=== PATIENT | female | born 1940 | race Caucasian/White ===

== ENCOUNTER 2018-09-13 10:09 | Outpatient (CLI) | payer MEDICARE, OTHER, SELFPAY ==
[2018-09-15 15:37] LABS: TB Interpretation Negative (NEGAT); TB1 Ag minus Nil 0.01 IU/mL
== END 2018-09-13 10:29 ==
PROVIDERS: PCP General Practice; Visit Provider General Practice
DX: Z11.1 Encounter for screening for respiratory tuberculosis (principal); Z02.1 Encounter for pre-employment examination
CPT/HCPCS: 36415; 86480

== ENCOUNTER 2018-10-18 00:44 | Outpatient (CLI) | payer MEDICARE, OTHER, SELFPAY ==
[2018-10-18] MEDS: Barium Sulfate 60% W/V 355 ML BTL PO (10:04)
--- NOTE | 2018-10-18 10:06 | DI.RAD_ITS ---
SYMPTOM/DIAGNOSIS: DYSPHAGIA BARIUM SWALLOW: Fluoroscopy Time: 1 minute 9 seconds The patient swallowed barium without difficulty. 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 There is a small axial hiatus hernia beneath a tight lower esophageal ring. There is no evidence of gastroesophageal reflux. SUMMARY: A tiny diverticulum is noted in the junction of the pharynx and proximal esophagus. There is a very small axial hiatus hernia beneath a tight lower esophageal ring. PA AND LATERAL CHEST: There are emphysematous changes in the lungs. There is no evidence of an infiltrate or pleural effusion. The cardiovascular structures appear intact. 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
== END 2018-10-18 01:04 ==
PROVIDERS: PCP General Practice; Visit Provider General Practice
DX: R13.10 Dysphagia, unspecified (principal); K22.5 Diverticulum of esophagus, acquired; K44.9 Diaphragmatic hernia without obstruction or gangrene; M47.812 Spondylosis without myelopathy or radiculopathy, cervical region
CPT/HCPCS: 74220; J3490

== ENCOUNTER → 2018-12-01 14:02 | Outpatient (BNVA) | payer MEDICARE, OTHER, SELFPAY | PROVIDERS: PCP General Practice; Referring Provider General Practice; Visit Provider Physical Therapy Assistant | DX: R13.10 Dysphagia, unspecified (principal); K22.2 Esophageal obstruction | CPT/HCPCS: 99213 ==

== ENCOUNTER 2018-12-11 10:42 | Day surgery (SDC) | payer MEDICARE, OTHER, SELFPAY ==
--- NOTE | 2018-12-11 07:14 | ENDO_ITS ---
Date of service: 12/11/18 Time of Service: 12:30 Endoscopy Report DATE OF PROCEDURE: 12/11/18 PRE-OP DIAGNOSIS: Dysphagia POST-OP DIAGNOSIS: other (Schatzki's ring, ? mass/polyp at GE junction, duodenitis) PROCEDURE: EGD with biopsies and balloon dilatation to 20 cm SURGEON: Chikis Reid ANESTHESIA: other (General/ ASA 2/Georgiana Pereira, SOUND CONTR[employer]ER) ESTIMATED BLOOD LOSS: 3 PATHOLOGY: other (Duodenal bx, GE junction bx, mass/polyp bx) COMPLICATIONS: None DISPOSITION: same day INDICATIONS: Mrs. Suarez is a pleasant 78 year old female who was seen in the office with complaints of dysphasia. Risks, benefits and complications have been reviewed. Complications include but are not limited to bleeding, pain, perforation, sore throat, aspiration, and adverse reaction to the medications. Questions were entertained and answered to their satisfaction and they wished to proceed. No guarantees were given or implied. PROCEDURE START TIME: 12:30 FINDINGS: There was narrowing with a Schatzki's ring at the GE junction. There was a polypoid mass just under the ring measuring <2 cm that was biopsied. There was mild inflammation of the 1st portion of the duodenum. Stomach was normal. PROCEDURE DESCRIPTION: After informed consent was obtained the patient was take to the procedure room and placed in a supine position. Monitors were applied and a time out was done. The patients name, date of , procedure type, allergies to medications and metal in their body was reviewed. A bite block was placed and the patient was sedated. Once sedated and comfortable the gastroscope was advanced through the oropharynx which was grossly normal into the esophagus. The proximal and mid- esophagus were normal. In the distal esophagus there was narrowing and a Schatzki's ring was noted. The scope just made it through. The scope was advanced into the stomach and through the pylorus into the 3rd portion of the duodenum. The 2nd and 3rd portion of the duodenum was noted to be normal. In the 1st portion a couple of areas of inflammation were noted. Biopsies were done of these areas. There were no ulcers identified. The scope was retracted back into the stomach which was normal. The scope was retroflexed. The cardia and fundus were noted to be normal. There was no hiatal hernia noted. The scop e was retracted back into the esophagus and biopsies were done of the GE junction to rule out Agee's. The Z line was regular. A polypoid mass measuring <2 cm was noted just under the Schatzki's ring. The GE junction was at 38 cm. The distal esophagus was dilated with a balloon to 20 cm. The scope was then able to easily slide through. The scope was removed and the patient was woken up and taken back to [facility] in stable condition. Follow up: 2 weeks
--- NOTE | 2018-12-11 07:15 | W.PM.DSUDISC ---
Discharge Plan Disposition Patient Disposition: HOME Condition: Good Discharge Details Reason For Visit: Dysphagia and esophageal stricture Attending Provider: Chikis Reid Primary Care Provider: Sarthak Parekh Home Meds and New Rx's Prescriptions: New omeprazole 20 mg capsule,delayed release(DR/EC) 20 mg PO DAILY Qty: 30 RF: 3 sucralfate [Carafate] 1 gram tablet 1 gm PO TID Qty: 42 RF: 0 Continued aspirin [Adult Aspirin Regimen] 81 mg tablet,delayed release (DR/EC) 81 mg PO DAILY RF: 0 pseudoephedrine HCl [Sudafed] 30 mg Tablet 30 mg PO ONCE PRNRF: 0 Discharge Instructions Instructions: Upper Endoscopy (GEN), Esophagitis (ED) Additional Instructions: Findings: Inflammation of the esophagus and small bowel Follow up: 2 weeks Please call if you develop: fevers >101.5 Nausea or Vomiting Abdominal pain that is not transient DAY SURGERY UNIT POST COLONOSCOPY INSTRUCTIONS 1. Because there will be medication in your system for the next 24 hours, you may feel a little sleepy. Your coordination will be affected. Therefore: a. Do not drive or operate dangerous equipment for 24 hours. b. Do not drink alcohol beverages for 24 hours (not even beer). c. Plan to go home and rest for the day. 2. Generally there are no restrictions on your activity after a day or so has gone by, but you may feel a bit fatigued for a few days. 3 After you arrive home you may have a light meal and return to a normal diet as you can tolerate it without feeling sick to your stomach. 4. After surgery, you may feel pain or discomfort. This should be only transient, but if it persists please contact your doctor. 5. If there are any questions regarding the findings of your procedure, please feel free to contact your doctor. 6. If you are unable to contact your doctor with a problem, contact the hospital at [phone]. 7. Continue all your regular medications unless directed otherwise. I understand the above instructions and have no questions. Signature of Patient or Responsible Adult Escort Date/Time Name of Responsible Adult Escort Signature of Nurse Date/Time Referrals: Chikis Reid MD [ [facility] STAFF PHYSICIAN] - 12/26/18 1:15 pm Activity:: Activity as Tolerated Diet:: As Tolerated Discharge Orders Discharge Orders: Discharge Order (Routine); Ordered 12/11/18 Ordered By: Chikis Reid DS: Diagnosis Discharge Diagnosis (1) H/O esophagogastroduodenoscopy:
[2018-12-11 11:24] VITALS: BP 154/73; PULSE 87; RESP 18; TEMP 36.9; O2SAT 95
[2018-12-11] MEDS: Lactated Ringers 1,000 ML 80 ML IV (11:31)
[2018-12-11] MEDS: Lidocaine 2% Pres-Free 5 ML VIAL (12:25)
--- NOTE | 2018-12-11 12:33 | ESO_PTH ---
PATIENT: Jazmine Suarez LOC: [facility] U#:[id number] AGE/SX: 78/F ROOM: RE12/11/[address]: Chikis Reid MD : [id number] BED: DIS: 12/11/2018 SPEC #: [id number] RECD: 12/11/18 17:49 STATUS: GABY RENoble #: [id number] ROSS: 12/11/18 12:[address]: Chikis Reid DEPT: Surgical Specimen RECD BY: Kimberli Oates ENTERED: 12/11/18 17:50 SP TYPE: Eso OTHR DR: Sarthak Parekh Tissues: 1 - BIOPSY BOWEL 2 - ESOPHAGUS BIOPSY Procedures: GROSS AND MICRO LEVEL 4 Comments: [id number]
[2018-12-11 13:50] VITALS: BP 131/79; PULSE 66; RESP 16; TEMP 36.5; O2SAT 97
== END 2018-12-11 14:05 | disposition home or self-care (01) ==
LOC: SUR 11:01
PROVIDERS: PCP General Practice; Visit Provider Surgery
PROC: 0DJ68ZZ Inspection of Stomach, Via Natural or Artificial Opening Endoscopic (ICD-10-PCS; CPT 43235; principal; 2018-12-11 12:15)
DX: R13.10 Dysphagia, unspecified (principal); K22.2 Esophageal obstruction; K29.80 Duodenitis without bleeding; K22.70 Barrett's esophagus without dysplasia
CPT/HCPCS: 43233; 43239; 88305

== ENCOUNTER → 2018-12-26 13:12 | Outpatient (BNVA) | payer MEDICARE, OTHER, SELFPAY | PROVIDERS: PCP General Practice; Referring Provider General Practice; Visit Provider Surgery | DX: K22.70 Barrett's esophagus without dysplasia (principal); K29.80 Duodenitis without bleeding | CPT/HCPCS: 99212; 99213 ==

== ENCOUNTER 2019-06-27 17:06 | Emergency (ER) | payer MEDICARE, OTHER, SELFPAY ==
[2019-06-27] VITALS (23 sets, daily range): BP systolic 118–153; BP diastolic 54–86; PULSE 70–115; RESP 13–22; TEMP 36.4–36.6; O2SAT 91–99
--- NOTE | 2019-06-27 17:00 | DI.CT_ITS ---
EXAM: CT HEAD CERVICAL SPINE WO CLINICAL HISTORY: found down TECHNIQUE: Noncontrast COMPARISON: No exams were available for comparison FINDINGS: CT: There is underlying moderate atrophy. There is right subdural collection of CSF attenuation levar suring 12 millimeters in thickness. There is a small amount of the left subdural collection. There is mild right to left midline shift of 4 millimeters. There is a question of some small areas of acu te hemorrhage seen near the high right frontal sulci as well as at the lateral aspect of the right te mporal lobe. No intraparenchymal hemorrhage is seen. There no mass or visible acute infarct. Other patchy areas of low density in the white matter. Mucous retention is seen in the left sphenoid sinu s. There is mild mucosal thickening of the ethmoid and left frontal sinuses. The mastoid air cells appear clear. No skull fracture is seen. 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 No fracture or abnormal subl uxation is seen. There are degenerative changes of the facet joints as well as severe degenerative d isc changes. There is no paraspinal hematoma. IMPRESSION: Chronic appearing right subdural collection causing mild eebli-uu-[id number] midline shift. A few small f oci of acute subarachnoid hemorrhage is visible along the right frontal and right temporal regions.
[2019-06-27] MEDS: Normal Saline 1,000 ML 1000 ML IV (17:10)
--- NOTE | 2019-06-27 17:14 | ED.GENADUL_ITS ---
Discharge Plan Disposition Patient Disposition: [facility] Condition: Serious Discharge Details Chief Complaint: Trauma Clinical Impression: Closed hip fracture, Elevated troponin, Acute dehydration, Subarachnoid hemorrhage, Subdural bleeding Primary Care Provider: Anabel Martinez ED Provider: Fatemeh Sen Home Meds and New Rx's Prescriptions: No Action mometasone 0.1 % cream 1 applic TP DAILY PRN (Reason: skin irritation) Qty: 50 RF: 0 clotrimazole 1 % cream 1 applic TP BID PRN (Reason: rash) Qty: 28.4 RF: 0 omeprazole 20 mg capsule,delayed release(DR/EC) 20 mg PO DAILY Qty: 90 RF: 4 aspirin [Adult Aspirin Regimen] 81 mg tablet,delayed release (DR/EC) 81 mg PO DAILY RF: 0 pseudoephedrine HCl [Sudafed] 30 mg Tablet 30 mg PO ONCE PRNRF: 0 Medical Decision Making <BRITT Clements - Last Filed: 06/27/19 22:08> Patient is a pleasant 78-year-old female presenting today, brought in via EMS, after being found down. Last known well was 2 days ago. Unclear if this was the time when she fell. Patient last remembers Tuesday morning and then awakening secondary to her dog barking when her friend came in to check on her today. She denies any headache. No nausea vomiting. She states that she has difficulty focusing her eyes secondary to blindness and reports that nystagmus is normal for her. Her only complaint at this time is bilateral hip pain. EMS reports they have had difficulty encouraging the patient to straighten out her legs for more thorough evaluation but they have noted ecchymosis on the backside of her right hip. She denies shortness of breath, chest pain, difficulty breathing, abdominal pain. On exam, patient appears quite dry. No palpable skull fracture, no evidence of head trauma. She does have notable nystagmus and tracking her eyes. Horizontal nystagmus is noted. Patient is collared. Lungs are clear, normal cardiac auscultation. Abdomen is benign. She does have pain elicited with compression of the pelvis. Was not able to tolerate compression. No pain over the bilateral greater trochanters. Patient does have mottling of her skin, is shaking and cold. She does appear acutely ill. Ecchymosis noted on posterior a spect of the right hip, the right shoulder and lateral aspect of the left hip. EKG was obtained and reviewed by Dr. Gutierrez. Please see his interpretation. Patient is mentally stable at this time, alert and oriented x3. I am concerned for possible intracranial etiology given her amnesia that is otherwise unexplained. Also concern for possible pelvic fracture given that discomfort. Rhabdomyolysis is a concern she may have been down for the past 2 days. Plan for vergara scan, aggressive hydration. Patient will remain in cervical collar. Patient is tachycardic. She is cold with a temp of 36.4, her fluid she is receiving are warm. Patient is in warm blankets. Blood pressure stable. Contacted the lab. Patient has a lactate of 4.0. I am concerned for rhabdomyolysis. Patient is on her second liter of fluids. I am concerned that with the elevated lactate patient may have urosepsis and will begin patient on Vanco and Zosyn. Contacted by the lab the troponin is 0.26. As patient is not having any symptoms, I feel that this is most likely associated with demand ischemia. ECG was obtained at the time of initial presentation, reviewed by Dr. Gutierrez with no ischemic changes noted. We will continue to monitor and repeat troponin and EKG. Pain is increasing in her bilateral hips. Will give another 50mcg of Fentanyl and zofran Contacted by radiology. They noticed subarachnoid hemorrhage questioning is traumatic. They also noticed subdural bleed but advised that this appears a late and subacute the 12 mm thickness. Does report a small midline shift no evidence of herniation. Negative C-spine. Will consult with trauma at [facility] Head of bed at 30. will give 1050 cc bolus of hypertonic saline. Unclear if the patient has been seizing as she has been amnesia for the past 2 days and we will begin the patient on Keppra. We will stop the antibiotics. Remaining labs reviewed. No leukocytosis. Hemoglobin is stable. Sodium is elevated 150. Anion gap of 14 with a BUN of 58 and creatinine of 1.3. Lactate 4.0. AST 53. CK 886. Troponin 0.26. Urine significant for blood, protein. Negative leukocyte esterase, negative nitrite. Consulted with trauma, spoke with Dr. Cruz who accepts patient in ED to ED transfer start for her subarachnoid hemorrhage, subdural bleed, hip fracture, elevated troponin. <Kulwant Gutierrez, DO - Last Filed: 06/27/19 17:54> EKG 17: 17, Rate 92, QTc slightly prolonged at 473, LA 110, QRS 92, sinus rhythm, LA shortened at 110. No significant ST elevations or depressions, no evidence of delta wave. No evidence of Njdco-Zvupnfopb-Jnnaq. No evidence of STEMI. HPI <Fatemeh Sen PA - Last Filed: 06/27/19 22:08> General Mode of arrival: EMS . Date/Time Provider Initiated Documentation: 06/27/19 17:14 . Limitations to Documentation: no limitations (patient has amnesia x 2 day, A&O x 3 at this time) . Information obtained by: patient, EMS and RN notes reviewed . HPI Narrative: Patient is a 78-year-old female who is brought in via EMS after being found down at home. EMS reports the last known well was sometime on Tuesday. Patient is currently alert and oriented.. She does endorse a period of amnesia and feels that she was confused. Tremors awakening on the floor secondary to dog barking today. Dog was barking at friend coming in to check in on her. If this friend then called EMS after finding her down. Patient was immediately endorsing bilateral hip pain to EMS. Patient is received 50 mcg of fentanyl thus far. S he denies any headache. No nausea or vomiting. Denies any shortness of breath, chest pain. No change in bowel or bladder habits. Past medical history significant for blindness, Agee's esophagus. No recent travel. No recent procedures. No recent change in medications. Related Data Home Medications Medication Instructions Recorded Confirmed aspirin 81 mg tablet,delayed 81 mg PO DAILY 12/01/18 06/27/19 release pseudoephedrine HCl [Sudafed] 30 mg PO ONCE PRN 12/08/18 06/27/19 clotrimazole 1 % topical cream 1 applic TP BID PRN #28.4 gm 05/29/19 06/27/19 mometasone 0.1 % topical cream 1 applic TP DAILY PRN #50 gm 05/29/19 06/27/19 omeprazole 20 mg capsule,delayed 20 mg PO DAILY #90 cap 05/29/19 06/27/19 release Previous Rx's Medication Instructions Recorded clotrimazole 1 % topical cream 1 applic TP BID PRN #28.4 gm 05/29/19 mometasone 0.1 % topical cream 1 applic TP DAILY PRN #50 gm 05/29/19 omeprazole 20 mg capsule,delayed 20 mg PO DAILY #90 cap 05/29/19 release Allergies Allergy/AdvReac Type Severity Reaction Status Date / Time erythromycin base AdvReac Intermediate GI upset Verified 06/27/19 17:16 Review of Systems <BRITT Clements - Last Filed: 06/27/19 22:08> Narrative: Review is limited secondary to amnesia Constitutional Constitutional: Denies headache(s) Eyes Eyes: Reports as per HPI (patient is blind at [facility]) ENT Ears, Nose, Mouth, and Throat: Denies headache(s) Cardiovascular Cardiovascular: Reports as per HPI, Denies chest pain and Denies dyspnea Respiratory Respiratory: Reports as per HPI, Denies pain on inspiration, Reports pain with cough and Denies dyspnea Gastrointestinal Gastrointestinal: Reports as per HPI and Denies abdominal pain Musculoskeletal Musculoskeletal: Reports as per HPI (right sided hip pain) and Reports abnormal gait (not ambulatory since amnesia event) Neurologic Neurologic: Reports as per HPI, Reports abnormal gait (not ambulatory since amnesia event), Reports confusion (she reports being confused when she was woken by friend), Denies headache(s) and Denies paresthesias Psychiatric Psychiatric: Reports confusion (she reports being confused when she was woken by friend) PFSH <BRITT Clements - Last Filed: 06/27/19 22:08> Medical History Agee's esophagus (Acute) Blindness (Acute) Duodenitis determined by biopsy (Acute) Dysphagia (Acute) Esophageal stricture (Acute) Surgical History H/O esophagogastroduodenoscopy (Chronic ~12/11/18) H/O tubal ligation (Chronic) History of arthroscopic knee surgery (Chronic) History of cataract surgery (Chronic) only on one eye pt not clear as to which side. Family History (Updated 05/03/19 @ 12:03 by Gómez Webster) Mother , age 63 No problems noted. Father , age 70 No problems noted. Brother , age 45 No problems noted. Other Cancer Hypertension Social History Smoking/Tobacco Use Status: Never Alcohol Intake: current Alcohol Intake frequency: a few times a week Alcohol type: beer, wine and hard liquor Drug use: Never Caregiver/Support person: No Housing: house Communication Needs: None Pets and animals: Yes Pets and animals: cat(s) and dog(s) Sexually active: No Do you think of yourself as: straight/heterosexual What is your relationship status?: never How often do you talk on the phone with friends or family?: three or more times per week How often do you get together with friends or relatives?: once per week How often do you attend synagogue or restoration services?: decline to answer Do you belong to any clubs or organized social groups?: yes Panel score (0-1 are the most socially isolated patients): 2 What type of physical activity do you participate in: walking Duration: 30-45 minutes/day Frequency: 3-4 times per week Jie/Anabaptist: Church Special jie needs: No Seatbelt use: sometimes Helmet use: No Drive intox or ride w/intox 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 Do you feel safe at home: Yes Additional Social history: lives alone Exam <BRITT Clements - Last Filed: 06/27/19 22:08> Const General: cooperative, no acute distress, well developed and ill appearing Nutritional Appearance: average body habitus and well nourished (appears dehydrated) Orientation: alert, awake and oriented x3 HENMT Head: normal to inspection, no palpable skull fracture, normocephalic, atraumatic, no Carter's sign, no contusions, no hematomas, no occipital foramen tenderness, no palpable skull fracture, no raccoon eyes, no scalp tenderness and No periorbital ecchymosis Ears: hearing grossly normal bilaterally, external ears normal and TM's normal bilaterally General nose exam: external nose normal Mouth: oral mucosae normal, lip normal, tongue normal and mucous membranes dry (patient apperas dehydrated) Throat: posterior oropharynx normal Eyes General: appearance abnormal, both eyes (eyes are conjugate she has a floating gaze and is not fixating on any objec) Alignment and Position: alignment normal (As above, patient does have horizontal nystagmus particularly with leftward) Eyelids: eyelids normal Conjunctivae: conjunctivae normal Sclera: sclerae normal EOM: EOM not intact bilaterally (Unable to assess, patient is unable to focus gaze at baseline) Neck Neck: normal visual inspection, limited ROM (Patient currently in collar), trachea midline and supple Chest Chest: normal inspection of the chest, normal palpation of entire chest wall, no crepitus and no localized rib tenderness Resp Effort & Inspection: normal respiratory effort, able to speak in complete sentences and no respiratory distress Auscultation: clear to auscultation bilaterally, no rales, no rhonchi and no wheezes Cardio Rate: regular rate Rhythm: regular rhythm Heart Sounds: S1 normal and S2 normal GI Inspection: normal to inspection, no abdominal wall ecchymosis, no edema and non-distended Palpation: soft, no hepatosplenomegaly, not firm, no guarding, no pulsatile masses, not rigid and nontender Auscultation: hypoactive bowel sounds Back/Spine/Pelvis Cervical Spine: collar present, No cervical spinal tenderness and No step off deformity Thoracic/Lumbar Spine: thoracic and lumbar spine normal to inspection, thoraco- lumbar ROM normal, No thoracic spinal tenderness and No lumbar spinal tenderness Pelvis: pain with anterior-posterior compression (pain elicited with palpation and compression) and pain with lateral compression Skin General skin exam: ecchymosis (right anterior shoulder, left lateral foot) Neuro General: alert, awake, oriented x3, gait normal, tone normal and moves all extremities Cranial Nerves: pupils not ERRL, accommodation abnormal, nystagmus present, facial strength normal, tongue midline, unable to rotate head bilaterally (did not assess with collar in place), able to elevate shoulders bilaterally and Symmetric palate elevation Cognition: normal cognition (is able to describe her previous confusion, oriented at this time) Speech: speech normal Motor: muscle tone normal throughout, strength 5/5 throughout (in BUE, strength difficult to assess in lower extremities secondary to hip ), no pronator drift and no movement abnormalities noted Sensory Exam: no sensory deficits noted (no saddle paresthesias) Extrem General: normal to inspection (BUE mottled), normal capillary refill, no pedal edema, no calf tenderness and abnormal gait Right upper extremity: abnormal to inspection (ecchymosis to right shoulder) Left upper extremity: normal to inspection Right lower extremity: normal capillary refill and no joint enlargement; abnormal to inspection (pain over left side of pelvis, unable to move both hips secondary to pain) and ROM limited Left lower extremity: normal capillary refill, no joint enlargement and foot (ecchymosis left lateral foot); abnormal to inspection (pain over left side of pelvis, unable to move both hips secondary to pain) and abnormal ROM Psych Appearance: grossly normal and well kempt Mental Status: mental status grossly normal Speech and Movement: speech and movement normal
--- NOTE | 2019-06-27 17:30 | DI.CT_ITS ---
EXAM: CT CHEST/ABD/PEL WO CLINICAL HISTORY: found down TECHNIQUE: Noncontrast COMPARISON: RF barium swallow from 10/18/2018 FINDINGS: Chest CT: Heart size is normal. No pleural or pericardial effusions are seen. There is no evidence of pneumothorax. No displaced rib fractures are identified. The thoracic spine shows degenerative changes. There is a mild compression fracture of T9 which appears stable compared with the previous chest x-ray. There is a peripheral area of consolidation in the lingula with an air bronchogram susp icious for pneumonia. No mass or adenopathy is seen. There are mild dependent changes at the lung b ases. Abdomen and pelvic CT: There is a subcapital fracture of the right femur. The right femoral shaft is displaced superolateral to the femoral head. There are a few tiny comminuted fragments at the femor al neck. Femoral head is normally positioned. No additional pelvic or spine fractures are seen. De generative changes and scoliosis are seen in the lumbar spine. A tiny cyst is seen in the left lobe of the liver. The gallbladder is somewhat distended but shows n o evidence of wall thickening or surrounding inflammation. No calcified stones are seen. The spleen is normal in size. The pancreas, kidneys and adrenals are unremarkable. The urinary bladder is amol ewhat distended but intact. Uterus and ovaries are unremarkable. There is increased stool in the re ctum. The remainder of the colon is unremarkable. Appendix appears normal. There is no small bowel dilatation. There is no free air or free fluid. The aorta is normal in diameter and shows mild mariluz cification. IMPRESSION: 1. Lingular infiltrate. 2. Subcapital fracture of the right femur with displacement.
[2019-06-27 17:34] LABS: Abs Immature Grans 0.03 k/cumm (0.0-0.09); Absolute Basophil Count 0.01 k/cumm (0.0-0.2); Absolute Eosinophil Count 0.01 k/cumm (0.0-0.7); Absolute Lymphocyte Count 1.67 k/cumm (1.2-3.4); Absolute Neutrophil Count 8.09 k/cumm (1.2-6.7); Basophils % 0.1; Eosinophils % 0.1; HCT 39.5 % (36.0-46.0); HGB 13.2 g/dL (12.0-15.5); Immature Grans % 0.3 %; Lymphocytes % 15.7; Mean Corp. HGB Concentration 33.4 g/dL (32.0-36.0); Mean Corpuscular Hemoglobin 33.5 pg (27.0-33.0); Mean Corpuscular Volume 100.3 fL (80-95); Mean Platelet Volume 9.3 fL (8.0-11.0); Monocytes % 7.5; Neutrophils % 76.3; Platelet Count 350 x1000/uL (130-400); RBC 3.94 m/cumm (4.00-5.20); RBC Distribution Width 14.4 % (11.7-14.6); White Blood Cell Count 10.61 k/cumm (4.4-10.8)
[2019-06-27 17:45] LABS: ALT 58 U/L (14-59); AST 53 U/L (15-37); Albumin 3.3 g/dL (3.4-5.0); Alkaline Phosphatase 85 U/L (46-116); Anion Gap 14.2 mmol/L (3-11); BUN 58 mg/dL (7-18); Bilirubin, Total 0.9 mg/dL (0.2-1.0); CO2 23.8 mmol/L (21.0-32.0); CREATININE 1.34 mg/dL (0.55-1.02); Calcium 9.7 mg/dL (8.5-10.1); Chloride 112 mmol/L (98-107); Creatine Kinase 886 U/L (26-192); Estimated GFR 38.35 (mL/min/1.73m2); Glucose 171 mg/dL (74-106); Magnesium 2.2 mg/dL (1.8-2.4); Potassium 3.5 mmol/L (3.5-5.1); Sodium 150 mmol/L (136-145); Total Protein 7.4 g/dL (6.4-8.2)
[2019-06-27 17:49] LABS: Troponin I 0.26 ng/Ml (<0.06)
[2019-06-27] MEDS: fentaNYL 100 MCG/2 ML VIAL 50 MCG IVP ×2 (17:50→20:00)
[2019-06-27 17:58] LABS: ETHANOL BLOOD < 3.0 mg/dL (<3)
[2019-06-27] MEDS: Ondansetron 4 MG/2 ML VIAL IVP (18:12)
[2019-06-27] MEDS: PIPERACILLIN/TAZO 3.375 GM in Normal Saline 50 ML IVPB (18:24)
[2019-06-27 18:53] LABS: Bilirubin Small (Negative); Blood Large (Negative); Clarity Sl Cloudy (Clear); Glucose 250 mg/dL (Negative); Ketones Negative (Negative); Leukocyte Esterase Negative (Negative); Nitrite Negative (Negative); Specific Gravity 1.025 (1.005-1.025); Urobilinogen 0.2 EU/dL (Up TO 0.2)
[2019-06-27 19:02] LABS: Bacteria Rare HPF (Negative); Crystals Rare Amorphous HPF (Negative); Epithelial Cells Negative HPF (Negative); Mucus Heavy (Negative); RBC 0-2 HPF (0-2); WBC 0-2 HPF (0-5)
[2019-06-27 19:03] LABS: C & S Indicated? No
[2019-06-27] MEDS: VANCOMYCIN 1,000 MG in Normal Saline 250 ML 166.6666 MG IVPB (19:08)
--- NOTE | 2019-06-27 19:10 | NUR.NOTE ---
Nursing Note: pt placed with head of the bed at 30 degree. she is talkative and is oriented to place .
--- NOTE | 2019-06-27 19:14 | DI.VRAD_ITS ---
PROCEDURE INFORMATION: Exam: CT Head Without Contrast Exam date and time: 06/27/2019 5:54 PM Age: 78 years old Clinical indication: Other: Found down TECHNIQUE: Imaging protocol: Computed tomography of the head without contrast. Radiation optimization: All CT scans at this facility use at least one of these dose optimization techniques: automated exposure control; mA and/or kV adjustment per patient size (includes targeted exams where dose is matched to clinical indication); or iterative reconstruction. COMPARISON: No relevant prior studies available. FINDINGS: Brain: Moderate generalized atrophy with mild periventricular white matter ischemic changes consistent with the patient's advanced age. There is a subdural fluid collection over the right cerebral convexity extending about 13 cm anterior to posterior by 9 cm craniocaudal over the convexity, and measures up to 12 mm in thickness. It demonstrates homogeneous Joy hypodense to isodense character with slight complexity, measuring 25 Hounsfield units on average. 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 There is a small amount of hyperdense subarachnoid hemorrhage within a high right frontal sulcus on axial series 3, image 41 measuring 72 Hounsfield units in density. An additional small component of subarachnoid hemorrhage is suspected at the lateral margin of the right temporal lobe on image 25 measuring 60 Hounsfield units. Tobias-white differentiation is well maintained. No evidence of acute or subacute intracranial ischemia/infarct. No intracranial mass lesions. Ventricles: Mild compensatory ventriculomegaly secondary to central atrophy. There is 4.5 mm right to left midline shift without evidence of associated herniation or ventricular entrapment. Bones/joints: The calvarium and visualized facial bones are intact. Sinuses: Fluid levels in the frontal sinuses and opacified ethmoid air cells with partially aerated secretions in the left sphenoid sinus, suggesting acute sinus inflammatory disease. Mastoid air cells: Visualized mastoid air cells are clear. Orbits: Orbital contents demonstrate no evidence of acute abnormality. Soft tissues: The scalp and visualized soft tissues demonstrate no acute abnormality. Vasculature: Moderate atherosclerotic calcific plaque is identified in the visualized proximal intracranial arterial segments. No asymmetric vascular hyperdensities suggestive of thrombosis are identified. Other findings: The IACs are grossly normal. The sella is grossly normal. IMPRESSION: 1. There are small foci of acute subarachnoid hemorrhage located in a high right frontal sulcus and along the lateral margin of the right temporal lobe, probably representing small foci of traumatic subarachnoid hemorrhage. 2. Mildly complex right-sided extensive subdural fluid most consistent with late subacute to chronic subdural hemorrhage. No suspected sites of active/acute subdural hemorrhage are identified currently. 3. There is 4.5 mm of associated right to left midline shift without evidence of herniation or ventricular entrapment. 4. Underlying moderate generalized atrophy with mild periventricular white matter ischemic changes. 5. Fluid levels in the paranasal sinuses suggesting an element of acute sinus inflammatory disease. 6. THIS REPORT CONTAINS FINDINGS THAT MAY BE CRITICAL TO PATIENT CARE. The findings were verbally communicated via telephone conference with IRVIN LACKEY at 7:13 PM EST on 06/27/2019. The findings were acknowledged and understood. PROCEDURE INFORMATION: Exam: CT Cervical Spine Without Contrast Exam date and time: 06/27/2019 5:54 PM Age: 78 years old Clinical indication: Other: Found down TECHNIQUE: Imaging protocol: Computed tomography images of the cervical spine without contrast. Radiation optimization: All CT scans at this facility use at least one of these dose optimization techniques: automated exposure control; mA and/or kV adjustment per patient size (includes targeted exams where dose is matched to clinical indication); or iterative reconstruction. COMPARISON: No relevant prior studies available. FINDINGS: Vertebrae: Diffuse osteopenia. Craniocervical alignment is normal. The odontoid is intact. C2-C3 congenital block vertebrae configuration noted. Reversal of cervical lordosis is probably related to chronic advanced degenerative changes in the mid and upper cervical spine although an element of muscular strain/spasm might be contributing to this appearance. 2 mm degenerative anterolisthesis at C3-C4 and 2 mm degenerative anterolisthesis at C7-T1. No blastic or lytic lesions. Discs/Spinal canal/Neural foramina: The occipital condyles are intact. Moderate degenerative sclerosis and spurring at the atlantodens interval. No jumped or perched facets. Advanced bilateral degenerative facet hypertrophic change C3-C4. Bilateral facet ankylosis C4-C5 and C5-C6. Moderate bilateral degenerative facet hypertrophic changes C6-C7 and C7-T1. Moderate degenerative disc space narrowing C3-C4. There is ankylosis across the disc spaces at C4-C5, C5-C6, and C6-C7. Moderate disc space narrowing C7-T1 and T1-T2. No compressive soft disc protrusion or extrusion is evident by CT. Mild central canal stenosis C5-C6 with AP thecal sac dimension of 9.1 mm. Mild bilateral foraminal stenosis C3-C4. Mild bilateral foraminal stenosis C6-C7. Other bones/joints: No fractures. Soft tissues: Paraspinous soft tissues are unremarkable without significant soft tissue swelling or soft tissue hematoma. Thyroid: The visualized thyroid gland is unremarkable. Lungs: Mild bilateral apical pleural/parenchymal scarring. IMPRESSION: 1. No evidence of fracture or acute traumatic subluxation. 2. Extensive cervical degenerative changes as described. 3. There is reversal of mid cervical lordosis which probably relates to the advanced degenerative changes and multilevel ankylosis. An element of muscular strain/spasm might be contributing to this configuration somewhat. 4. C2-C3 congenital block vertebrae noted. Dictated and Authenticated by: Vitaly Smith MD. Ordering:MANDY Weldon MD
--- NOTE | 2019-06-27 19:21 | DI.VRAD_ITS ---
PROCEDURE INFORMATION: Exam: CT Chest Without Contrast Exam date and time: 06/27/2019 6:00 PM Age: 78 years old Clinical indication: Other: Found down, concern for pelvic TECHNIQUE: Imaging protocol: Computed tomography of the chest without contrast. Radiation optimization: All CT scans at this facility use at least one of these dose optimization techniques: automated exposure control; mA and/or kV adjustment per patient size (includes targeted exams where dose is matched to clinical indication); or iterative reconstruction. COMPARISON: No relevant prior studies available. FINDINGS: Thyroid: The thyroid gland appears within normal limits. Lungs: The tracheobronchial tree is patent bilaterally. There is a consolidation within the left upper lobe. There is an air bronchogram. This could represent a small infiltrate. This could represent atelectasis as well. There is fibrosis and scarring within the left upper lobe. There are dependent atelectatic changes at the left lung base. Pleural space: Unremarkable. No pneumothorax. No pleural effusion. Heart: The heart and pericardium are within normal limits. Aorta: The aorta is unremarkable. Lymph nodes: No enlarged lymph nodes. Bones/joints: There are degenerative changes of the thoracic spine. There are degenerative changes of both shoulders. Soft tissues: Unremarkable. IMPRESSION: Suspect left upper lobe infiltrate. Clinical correlation is suggested. Osseous findings as above. PROCEDURE INFORMATION: Exam: CT Abdomen And Pelvis Without Contrast Exam date and time: 06/27/2019 6:00 PM Age: 78 years old Clinical indication: Other: Found down, concern for pelvic TECHNIQUE: Imaging protocol: Computed tomography of the abdomen and pelvis without contrast. Radiation optimization: All CT scans at this facility use at least one of these dose optimization techniques: automated exposure control; mA and/or kV adjustment per patient size (includes targeted exams where dose is matched to clinical indication); or iterative reconstruction. COMPARISON: No relevant prior studies available. FINDINGS: Liver: There is a small low-attenuation lesion within the left lobe of the liver measuring 9 mm. This is too small to characterize by CT criteria. Gallbladder and bile ducts: The gallbladder is somewhat distended. Pancreas: The pancreas is unremarkable. Spleen: The spleen is small. Adrenals: The adrenal glands are unremarkable. Kidneys and ureters: The kidneys are within normal limits. Stomach and bowel: There are feces within the colon which are suspicious for constipation. Appendix: The appendix is visualized and is within normal limits. Intraperitoneal space: Unremarkable. No free air. No significant fluid collection. Vasculature: Unremarkable. No abdominal aortic aneurysm. Lymph nodes: No enlarged lymph nodes. Bladder: The urinary bladder is distended with urine. Reproductive: The uterus and ovaries are within normal limits for a patient of this age. Bones/joints: There is a fracture through the neck of the right femur. The femoral shaft is displaced superiorly. The head remains within the acetabulum There is a levoscoliosis of the lumbar spine. There are degenerative changes and degenerative disc disease of the lumbar spine. Soft tissues: Unremarkable. IMPRESSION: Right femoral neck fracture as above. Osseous findings as above. Small liver lesion too small to characterize by CT criteria. Suspect constipation as above. Dictated and Authenticated by: Nestor Mcdowell MD. Ordering:MANDY Weldon MD
[2019-06-27] MEDS: levETIRAcetam 2,000 MG in Normal Saline 100 ML 400 MG IVPB (19:41)
[2019-06-27] MEDS: SODIUM CHLORIDE 3% 500 ML 100 ML IV (20:05)
== END 2019-06-27 20:15 | disposition short-term general hospital (02) ==
PROVIDERS: Emergency Provider Physician Assistant; PCP Nurse Practitioner
DX: R41.3 Other amnesia (principal); S72.011A Unspecified intracapsular fracture of right femur, initial encounter for closed fracture; W19.XXXA Unspecified fall, initial encounter; E86.0 Dehydration; R77.8 Other specified abnormalities of plasma proteins; I60.9 Nontraumatic subarachnoid hemorrhage, unspecified; I62.03 Nontraumatic chronic subdural hemorrhage; E87.2 Acidosis
CPT/HCPCS: 36415; 71250; 80053; 82550; 86850; 86900; 86901; 93005; 96361; 96365; 96367; 96375; 99285; 70450; 72125; 74176; 80320; 81003; 81015; 83605; 83735; 84484; 85025; 93010; J1953; J2405; J2543; J3010

== ENCOUNTER 2019-08-30 10:11 | Outpatient (CLI) | payer MEDICARE, OTHER, SELFPAY ==
--- NOTE | 2019-08-30 10:00 | DI.RAD_ITS ---
EXAM: XR HIP RT AP LAT ONLY CLINICAL HISTORY: F/U FRACTURE TECHNIQUE: COMPARISON: No exams were available for comparison FINDINGS: Two views were obtained and show femoral head prosthesis in place on the right. This appears well se ated in the proximal femur and the acetabulum. No other significant abnormality seen. IMPRESSION:
== END 2019-08-30 10:31 ==
PROVIDERS: PCP Nurse Practitioner; Referring Provider Nurse Practitioner; Visit Provider Student in an Organized Health Care Education/Training Program
DX: S72.001D Fracture of unspecified part of neck of right femur, subsequent encounter for closed fracture with routine healing (principal); Z96.641 Presence of right artificial hip joint; W19.XXXD Unspecified fall, subsequent encounter
CPT/HCPCS: 99213; 73502

== ENCOUNTER 2020-01-16 01:41 | Outpatient (CLI) | payer MEDICARE, OTHER, SELFPAY ==
--- NOTE | 2020-01-16 06:45 | DI.MAMMO_ITS ---
EXAM: MG MAMMO SCREENING 60 MIN DUR CLINICAL HISTORY: breast cancer screening,Z12.39 TECHNIQUE: Mammograms were interpreted according to the usual protocol including computer analysis w [employer] system, tomosynthesis and C-view imaging. COMPARISON: FINDINGS: The breasts are of moderate density with fairly symmetrical distribution of fibroglandular tissue. N o dominant mass or clumped microcalcification is identified in either breast. No prior examinations available for comparison. IMPRESSION: No specific evidence of malignancy at this time. Routine screening examinations are suggested at yea rly intervals in this age group according to the ACS ACR guidelines. BI-RADS Cat 1 - Negative Breast Density - Category B - Scattered areas of fibroglandular density
== END 2020-01-16 02:01 ==
PROVIDERS: PCP Nurse Practitioner; Visit Provider Nurse Practitioner
DX: Z12.31 Encounter for screening mammogram for malignant neoplasm of breast (principal)
CPT/HCPCS: 77063; 77067

== ENCOUNTER → 2021-11-25 01:47 | Outpatient (CLI) | payer MEDICARE, OTHER, SELFPAY | PROVIDERS: PCP Nurse Practitioner; Visit Provider Nurse Practitioner ==

== ENCOUNTER 2022-08-18 15:22 | Inpatient (IN) | payer MEDICARE, SELFPAY ==
[2022-08-18] VITALS (33 sets, daily range): BP systolic 123–174; BP diastolic 60–121; PULSE 75–106; RESP 10–32; TEMP 36.5–37; O2SAT 89–99
--- NOTE | 2022-08-18 | DI.RAD_ITS ---
Exam(s) XR FEMUR LT EXAM: XR FEMUR LT CLINICAL HISTORY: Left hip fracture surg plaaning. TECHNIQUE: 2D digital imaging was performed. Three views. COMPARISON: None. FINDINGS: There has been no change in the alignment of the subcapital fracture of the left femur. There is aga in noted to be marked superior displacement. Exam is somewhat limited by overlying clothing. No add itional abnormalities are seen distally in the femur. Vascular calcifications noted. IMPRESSION: Stable alignment of subcapital fracture of the left femur.. DATA REPOSITORY: RADIATION DOSE DELIVERED:
--- NOTE | 2022-08-18 15:30 | DI.RAD_ITS ---
Exam(s) XR CHEST 1V IN DI DEPT EXAM: XR CHEST 1V IN DI DEPT CLINICAL HISTORY: fall, OR TECHNIQUE: 2D digital imaging was performed of the chest. Two images were obtained. AP views were obtained. COMPARISON: CR RF barium swallow from 10/18/2018 FINDINGS: MEDIASTINUM: Normal. HEART: Normal. PULMONARY VASCULATURE: Normal. LUNGS: Clear. PLEURAL SPACE: No pleural effusion or pneumothorax. BONE:Within normal limits for the patient's age. OTHER FINDINGS:Normal. IMPRESSION: No acute pulmonary findings. DATA REPOSITORY: RADIATION DOSE DELIVERED:
--- NOTE | 2022-08-18 15:30 | RT.EKG_ITS ---
APPROVED REPORT Exam: Resting ECG Reason for Exam: OR Patient Location: E HR:85 bpm ECG Measurements Heart Rate 85 AXIS DC 162 P 66 QRSd 97 QRS 77 QT 389 T 68 QTc 464 Conclusion Sinus rhythm...normal P axis, V-rate 60- 99 NSR 85, nl intervals and EKG
--- NOTE | 2022-08-18 15:30 | DI.RAD_ITS ---
Exam(s) XR HIP LT COMPLETE AP PELVIS EXAM: XR HIP LT COMPLETE AP PELVIS CLINICAL HISTORY: pain post fall. TECHNIQUE: 2D digital imaging was performed of the left hip. Two views were obtained. AP pelvis an d lateral left hip views were obtained. COMPARISON: CR XR HIP RT AP LAT ONLY from 08/30/2019 FINDINGS: BONES: There is an acute subcapital fracture of the left femur. The distal fracture component is sup eriorly displaced. The right femoral head is seated within the acetabulum. No bony destructive lesi on is seen. JOINTS: No dislocation present. The patient has a right hip prosthesis which is unchanged. SOFT TISSUE: Atherosclerosis. IMPRESSION: Displaced subcapital left femoral neck fracture. DATA REPOSITORY: RADIATION DOSE DELIVERED:
[2022-08-18 15:51] LABS: Source Nasal/Nares
[2022-08-18 15:55] LABS: Abs Immature Grans 0.05 10^3/uL (0.0-0.06); Absolute Basophil Count 0.04 10^3/uL (0.0-0.2); Absolute Lymphocyte Count 1.34 10^3/uL (1.2-3.4); Absolute Monocyte Count 0.91 10^3/uL (0.1-0.8); Absolute Neutrophil Count 10.29 10^3/uL (1.2-6.7); Basophils % 0.3; HCT 39.1 % (36.0-46.0); Immature Grans % 0.4; Lymphocytes % 10.6; MCH 32.8 pg (27.0-33.0); MCHC 33.2 % (32.0-36.0); MCV 99 fL (80-95); MPV 8.7 fL (8.0-11.0); Monocytes % 7.2; Neutrophils % 81.5; Platelet Count 397 10^3/uL (130-400); RBC 3.96 10^6/uL (3.93-5.22); RDW 13.8 % (11.7-14.6); RDW-SD 50.8 fL; WBC 12.63 10^3/uL (4.4-10.8)
[2022-08-18] MEDS: ACETAMINOPHEN 1,000 MG/100 ML BTL 400 MG IVPB ×2 (16:03→23:00)
[2022-08-18 16:07] LABS: ETHANOL BLOOD 172.1 mg/dL (<10); PTT Activated 24.1 sec (21.5-31.9); Prothrombin Time 9.7 sec (9.3-11.0)
[2022-08-18 16:10] LABS: ALT 26 U/L (14-59); AST 31 U/L (15-37); Alkaline Phosphatase 76 U/L (46-116); Anion Gap 15.1 mmol/L (3-11); BUN 12 mg/dL (7-18); Bilirubin, Total 0.8 mg/dL (0.2-1.0); CO2 22.9 mmol/L (21.0-32.0); CREATININE 0.7 mg/dL (0.55-1.02); Calcium 9.2 mg/dL (8.5-10.1); Chloride 108 mmol/L (98-107); Estimated GFR 87.37 (mL/min/1.73m2); Glucose 99 mg/dL (74-106); Magnesium 1.9 mg/dL (1.8-2.4); Potassium 3.9 mmol/L (3.5-5.1); Sodium 146 mmol/L (136-145); Total Protein 7.7 g/dL (6.4-8.2)
[2022-08-18 16:25] LABS: COVID-19 PCR Negative (Negative)
--- NOTE | 2022-08-18 17:21 | ED.GENADUL_ITS ---
Discharge Plan Disposition Patient Disposition: Admit to [facility] Condition: Good Discharge Details Clinical Impression: Closed hip fracture requiring operative repair Admit Date/Time: 08/18/22 17:38 Admit Provider: Waldo Mckay Attending Provider: Waldo Mckay Primary Care Provider: Amadeo Bernal ED Provider: Merced Brooks Medical Decision Making Case discussed with Dr. Padilla from orthopedics. He will likely operate on the patient tomorrow. He requests [place] protocol and anesthesia evaluation. He would like the patient admitted to the hospitalist. Case discussed with Dr. Mckay who accepts the patient. The patient was updated on her test results and the plan. She did require additional pain medication and was medicated with Dilaudid. Imaging Data Radiologic Study: Attestation: I personally reviewed and interpreted this imaging study as follows: Imaging: X-Ray Radiologist's impression: EXAM: XR CHEST 1V IN DI DEPT CLINICAL HISTORY: fall, OR TECHNIQUE: 2D digital imaging was performed of the chest. Two images were obtained. AP views were obtained. COMPARISON: CR RF barium swallow from 10/18/2018 FINDINGS: MEDIASTINUM: Normal. HEART: Normal. PULMONARY VASCULATURE: Normal. LUNGS: Clear. PLEURAL SPACE: No pleural effusion or pneumothorax. BONE:Within normal limits for the patient's age. OTHER FINDINGS:Normal. IMPRESSION: No acute pulmonary findings. Radiologic Study #2: Attestation: I personally reviewed and interpreted this imaging study as follows: Imaging: X-Ray Radiologist's impression: XR HIP LT COMPLETE AP PELVIS EXAM: XR HIP LT COMPLETE AP PELVIS CLINICAL HISTORY: pain post fall. TECHNIQUE: 2D digital imaging was performed of the left hip. Two views were obtained. AP pelvis and lateral left hip views were obtained. COMPARISON: CR XR HIP RT AP LAT ONLY from 08/30/2019 FINDINGS: BONES: There is an acute subcapital fracture of the left femur. The distal fracture component is superiorly displaced. The right femoral head is seated within the acetabulum. No bony destructive lesion is seen. JOINTS: No dislocation present. The patient has a right hip prosthesis which is unchanged. SOFT TISSUE: Atherosclerosis. IMPRESSION: Displaced subcapital left femoral neck fracture. Lab Data Lab results narrative: Lab results reviewed. EtOH 0.17. ECG Data Attestation: I personally reviewed and interpreted this ECG (s) as follows: Interpretation: Normal sinus rhythm at 85, normal intervals and EKG HPI General Date/Time Provider Initiated Documentation: 08/18/22 15:26 . HPI Narrative: This 81-year-old female patient with a history of alcohol abuse presents after a fall at home. The patient states that she went to get out of bed to feed the cat and dog and her right leg gave out. She fell on her left hip and arm and then could not get back up again. She was able to crawl on the floor to feed the cat and dog. She did not hit her head and has no neck pain. There was no LOC. Her only pain is in her left hip and thigh. I asked her if she drinks alcohol she said heck yes. She told nursing that she had 2 shots of whiskey to help the pain after crawling on the floor. She has no chest pain, shortness of breath, belly pain, or pelvic pain. The patient states the pain is not bad unless she tries to move and then it is very severe. The fall was earlier this morning. Related Data Home Medications Medication Instructions Recorded Confirmed aspirin 81 mg tablet,delayed 81 mg PO DAILY 12/01/18 12/19/20 release (Adult Aspirin Regimen) pseudoephedrine HCl 30 mg tablet 30 mg PO ONCE PRN 07/31/19 08/18/22 (Sudafed) clobetasol 0.05 % topical foam 1 applic topical DAILY #100 grams 12/07/19 12/19/20 triamcinolone acetonide 0.1 % 1 applic topical BID #80 grams 12/12/19 12/19/20 topical cream omeprazole 20 mg capsule,delayed 20 mg PO DAILY #90 caps 08/16/22 08/18/22 release Previous Rx's Medication Instructions Recorded clobetasol 0.05 % topical foam 1 applic topical DAILY #100 grams 12/07/19 triamcinolone acetonide 0.1 % 1 applic topical BID #80 grams 12/12/19 topical cream omeprazole 20 mg capsule,delayed 20 mg PO DAILY #90 caps 08/16/22 release Allergies Allergy/AdvReac Type Severity Reaction Status Date / Time erythromycin base AdvReac Intermediate GI upset Verified 12/19/20 13:08 General Stated Complaint: Orthopedic ROSALINE: 3 Review of Systems Constitutional Constitutional: Denies chills, Denies fever(s), Denies headache(s) and Denies weakness Eyes Eyes: Denies diplopia and Reports other (no redness) ENT Ears, Nose, Mouth, and Throat: Denies otalgia, Denies headache(s), Denies nasal congestion, Denies nasal discharge, Denies neck pain and Denies sore throat Cardiovascular Cardiovascular: Denies chest pain, Denies palpitations and Denies dyspnea Respiratory Respiratory: Denies cough and Denies dyspnea Gastrointestinal Gastrointestinal: Denies abdominal pain, Denies diarrhea, Denies nausea and Denies vomiting Genitourinary Genitourinary: Denies hematuria and Denies dysuria Musculoskeletal Musculoskeletal: Denies myalgias, Denies muscle weakness, Denies neck pain, Denies numbness and Reports other (edema BLE, has left hip pain) Integumentary/Breasts Skin/Breast: Denies change in pigmentation and Denies rash Neurologic Neurologic: Denies headache(s), Denies numbness and Denies weakness Endocrine Endocrine: Denies palpitations PFSH All Active Problems Tinnitus (Acute 04/07/15) Eczema (Acute 04/07/15) Left displaced femoral neck fracture (Acute 08/18/22) Skin mole (Acute) Muscle spasms of neck (Acute) Hip pain, right (Acute) Seborrheic dermatitis (Acute) Eczema of both external ears (Acute) Blindness (Acute) Duodenitis determined by biopsy (Acute) Dysphagia (Acute) Agee's esophagus (Acute) Medical History 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 History of hemiarthroplasty of right hip (06/28/19) [facility] [place] Family History Mother , age 63 No problems noted. Father , age 70 Cancer LIVER CANCER Brother , age 45 No problems noted. Other Hypertension Social History Smoking/Tobacco Use Status: Never Second Hand Exposure: Yes Smoking risk assessment performed?: Yes Alcohol Intake: current Alcohol Intake frequency: holidays/special occasions only Alcohol type: beer, wine and hard liquor Drug use: Never Caregiver/Support person: No Household members: none Housing: house Communication Needs: Blind Do you need help understanding health information?: Rarely Pets and animals: Yes (seeing eye dog) Pets and animals: cat(s) and dog(s) Sexually active: No Do you think of yourself as: straight/heterosexual Current gender identity: female What is your relationship status?: never How often do you talk on the phone with friends or family?: three or more times per week How often do you get together with friends or relatives?: never How often do you attend holiness or bahai services?: decline to answer Do you belong to any clubs or organized social groups?: no Panel score (0-1 are the most socially isolated patients): 1 What type of physical activity do you participate in: walking and other Details: horseback riding Duration: < 15 minutes/day Frequency: 1-2 times per week Jie/Nondenominational: Adventist Special jie needs: No Seatbelt use: sometimes Helmet use: Yes Drive intox or ride w/intox trencher driver: No Do you feel safe at home: Yes Additional Social history: lives alone Exam Const General: no acute distress, well developed, well groomed and not in acute distress Nutritional Appearance: well nourished Orientation: alert and oriented x3 HENMT Head: normocephalic and atraumatic Ears: external ears normal Mouth: oropharynx normal and moist mucous membranes Throat: posterior oropharynx normal Eyes Conjunctivae: conjunctivae normal Neck Neck: full ROM and supple Chest Chest: normal inspection of the chest Resp Effort & Inspection: normal respiratory effort Auscultation: clear to auscultation bilaterally Cardio Rate: regular rate Rhythm: regular rhythm Heart Sounds: no murmurs and no rubs GI Inspection: normal to inspection Palpation: soft, nontender and other (non distended) Auscultation: normal bowel sounds Back/Spine/Pelvis Back: no CVA tenderness and CVA tenderness Cervical Spine: cervical ROM normal, collar present (Removed status post exam of cervical spine), No cervical spinal tenderness and No step off deformity Thoracic/Lumbar Spine: thoracic and lumbar spine normal to inspection, No thoracic spinal tenderness and No lumbar spinal tenderness Pelvis: no pain with anterior-posterior compression Skin General skin exam: no rashes or lesions noted and other (pink, warm, dry) Neuro General: patient alert, patient awake and patient oriented x3 Speech: speech normal Motor: other (STREET) Sensory Exam: no sensory deficits noted Extrem General: normal to inspection (Bilateral upper and right lower extremities, AT NTP, FROM), full ROM (BUE and RLE) and pedal edema present Left lower extremity: normal to inspection (Shortened with patient lying on right side) and normal capillary refill (distal pulse dopplerable, same as other side); abnormal ROM, no edema and joint enlargement noted Psych Mental Status: mental status grossly normal Speech and Movement: speech and movement normal Affect: normal affect Course Vital Signs Vital signs: Vital Signs Temperature 36.5 C 08/18/22 15:19 Pulse 94 H 08/18/22 15:19 Respiratory Rate 16 08/18/22 15:19 Blood Pressure 174/95 H 08/18/22 15:19 Pulse Oximetry 98 08/18/22 15:19 Temperature 36.5 C 08/18/22 15:19 Pulse 94 H 08/18/22 15:19 Respiratory Rate 16 08/18/22 15:19 Respiratory Effort Normal 08/18/22 17:08 Blood Pressure 174/95 H 08/18/22 15:19 Blood Pressure Position Supine 08/18/22 15:19 Pulse Oximetry 98 08/18/22 15:19 Oxygen Delivery Method Room Air 08/18/22 15:19 Oxygen Flow Rate 0 08/18/22 15:19 Pain Level 7 08/18/22 15:19 Lab/Test Results Lab/Test Results: Laboratory Tests Range/Units 08/18/22 08/18/22 08/18/22 15:46 15:46 15:46 WBC (4.4-10.8) 10^3/uL RBC (3.93-5.22) 10^6/uL Hgb (11.2-15.7) g/dL Hct (36.0-46.0) % MCV (80-95) fL MCH (27.0-33.0) pg MCHC (32.0-36.0) % RDW (11.7-14.6) % Plt Count (130-400) 10^3/uL MPV (8.0-11.0) fL Immature Gran % Neutrophils % Lymphocytes % Monocytes % Eosinophils % Basophils % Nucleated RBC % (0.0-0.3) % Absolute Neutrophils (1.2-6.7) 10^3/uL Absolute Lymphocytes (1.2-3.4) 10^3/uL Absolute Monocytes (0.1-0.8) 10^3/uL Absolute Eosinophils (0.0-0.7) 10^3/uL Absolute Basophils (0.0-0.2) 10^3/uL PT (9.3-11.0) sec 9.7 INR (0.9-1.1) 1.0 APTT (21.5-31.9) sec 24.1 Sodium (136-145) mmol/L 146 H Potassium (3.5-5.1) mmol/L 3.9 Chloride (98-107) mmol/L 108 H Carbon Dioxide (21.0-32.0) mmol/L 22.9 Anion Gap (3-11) mmol/L 15.1 H BUN (7-18) mg/dL 12 Creatinine (0.55-1.02) mg/dL 0.7 Est GFR (CKD-EPI 2020) (mL/min/1.73m2) 87.37 Glucose (74-106) mg/dL 99 Calcium (8.5-10.1) mg/dL 9.2 Magnesium (1.8-2.4) mg/dL 1.9 Total Bilirubin (0.2-1.0) mg/dL 0.8 AST (15-37) U/L 31 ALT (14-59) U/L 26 Alkaline Phosphatase (46-116) U/L 76 Total Protein (6.4-8.2) g/dL 7.7 Albumin (3.4-5.0) g/dL 4.0 Ethyl Alcohol (<10) mg/dL 172.1 H COVID-19 Source SARS-CoV-2 (PCR) (Negative) Range/Units 08/18/22 08/18/22 15:46 15:48 WBC (4.4-10.8) 10^3/uL 12.63 H RBC (3.93-5.22) 10^6/uL 3.96 Hgb (11.2-15.7) g/dL 13.0 Hct (36.0-46.0) % 39.1 MCV (80-95) fL 99 H MCH (27.0-33.0) pg 32.8 MCHC (32.0-36.0) % 33.2 RDW (11.7-14.6) % 13.8 Plt Count (130-400) 10^3/uL 397 MPV (8.0-11.0) fL 8.7 Immature Gran % 0.4 Neutrophils % 81.5 Lymphocytes % 10.6 Monocytes % 7.2 Eosinophils % 0.0 Basophils % 0.3 Nucleated RBC % (0.0-0.3) % 0.0 Absolute Neutrophils (1.2-6.7) 10^3/uL 10.29 H Absolute Lymphocytes (1.2-3.4) 10^3/uL 1.34 Absolute Monocytes (0.1-0.8) 10^3/uL 0.91 H Absolute Eosinophils (0.0-0.7) 10^3/uL 0.00 Absolute Basophils (0.0-0.2) 10^3/uL 0.04 PT (9.3-11.0) sec INR (0.9-1.1) APTT (21.5-31.9) sec Sodium (136-145) mmol/L Potassium (3.5-5.1) mmol/L Chloride (98-107) mmol/L Carbon Dioxide (21.0-32.0) mmol/L Anion Gap (3-11) mmol/L BUN (7-18) mg/dL Creatinine (0.55-1.02) mg/dL Est GFR (CKD-EPI 2020) (mL/min/1.73m2) Glucose (74-106) mg/dL Calcium (8.5-10.1) mg/dL Magnesium (1.8-2.4) mg/dL Total Bilirubin (0.2-1.0) mg/dL AST (15-37) U/L ALT (14-59) U/L Alkaline Phosphatase (46-116) U/L Total Protein (6.4-8.2) g/dL Albumin (3.4-5.0) g/dL Ethyl Alcohol (<10) mg/dL COVID-19 Source Nasal/Nares SARS-CoV-2 (PCR) (Negative) Negative
--- NOTE | 2022-08-18 17:53 | W.PM.HP.N ---
Date of service: 08/18/22 Time of Service: 17:53 Assessment and Plan Assessment and plan (1) Left displaced femoral neck fracture: Status: Acute Assessment and plan: Patient is medically stable and acceptable risk for surgery for immediate repair of her left hip. She has no anginal or CHF symptoms and no chronic respiratory issues. She has hx of GERD and Agee's esophagitis. I have placed her on parenteral PPI preoperatively. SCD will be applied preoperatively and postoperatively she can be put on enoxparin for DVT prophylaxis. Orthopedics has requested anesthesia preoperative consultation. This can be performed in the morning. I have placed her on CIWA monitoring for alcohol withdrawal, however, patient denies any prior hx of intoxication, or alcohol withdrawal. I have decided to not prophylax w/ phenobarbital at this point unless she demonstrates symptoms of withdrawal. I have made her NPO after midnight tonight and ordered palacio catheter and preoperative iv fluids, analgesics, Tylenol and prn antiemetics. History of Present Illness History of Present Illness Chief Complaint: left leg pain after a fall Narrative: 81 yr old female w/ hx of blindness since who lives alone w/ her seeing eye dog. She was feeding her dog when she tripped and landed on her left side, this occurred this morning. She says that she could not get up and crawled around on the floor until she was able to pull the phone children's ministries director to her and call EMS. She admits to having couple of shots of whiskey to kill the pain but she denies daily consumption of alcohol. She estimates she will have a couple of drinks a month when she has company. She denies ever getting intoxicated and denies any alcohol withdrawal or seizures. However, on arrival as part of her workup her blood alcohol level was checked and found to be 172 mg/dL. X-ray of her pelvis revealed to have a comminuted subcapital fracture of the left femoral neck. She also has a right hip prosthesis which she says was done at [facility] [place]. Patient states that she is usually healthy. she denies any cardiac hx for GA, angina, CHF and denies any smoking hx or PMH for asthma or COPD. She says that her surgical hx consists of right hip replacement, tubal ligation. Her blindness has been present since and she says that this is hereditary. She has never and does not have any children or family members in the area. Review of Systems Constitutional Constitutional: Reports as per HPI Eyes Eyes: Reports as per HPI ENT Ears, Nose, Mouth, and Throat: Reports system reviewed and no additional complaints, except as documented Cardiovascular Cardiovascular: Denies chest pain at rest, Denies chest pain with activity, Denies irregular heart rhythm, Denies lightheadedness, Denies radiating jaw, neck or arm pain, Denies palpitations, Denies dyspnea and Denies dyspnea on exertion Respiratory Respiratory: Denies dyspnea and Denies dyspnea on exertion Gastrointestinal Gastrointestinal: Reports system reviewed and no additional complaints, except as documented Genitourinary Genitourinary: Reports system reviewed and no additional complaints, except as documented Musculoskeletal Musculoskeletal: Reports as per HPI Integumentary/Breasts Skin/Breast: Reports system reviewed and no additional complaints, except as documented Neurologic Neurologic: Reports system reviewed and no additional complaints, except as documented Psychiatric Psychiatric: Reports system reviewed and no additional complaints, except as documented Endocrine Endocrine: Reports system reviewed and no additional complaints, except as documented and Denies palpitations Hematologic/Lymphatic Hematologic/Lymphatic: Reports system reviewed and no additional complaints, except as documented PFSH All Active Problems (Updated 08/18/22 @ 20:52 by Waldo Mckay MD) Tinnitus (Acute 04/07/15) Eczema (Acute 04/07/15) Left displaced femoral neck fracture (Acute 08/18/22) Skin mole (Acute) Muscle spasms of neck (Acute) Hip pain, right (Acute) Seborrheic dermatitis (Acute) Eczema of both external ears (Acute) Blindness (Acute) Duodenitis determined by biopsy (Acute) Dysphagia (Acute) Agee's esophagus (Acute) Medical History (Updated 08/18/22 @ 20:52 by Waldo Mckay MD) 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 History of hemiarthroplasty of right hip (06/28/19) [facility] [place] Family History Mother , age 63 No problems noted. Father , age 70 Cancer LIVER CANCER Brother , age 45 No problems noted. Other Hypertension Social History Smoking/Tobacco Use Status: Never Second Hand Exposure: Yes Smoking risk assessment performed?: Yes Alcohol Intake: current Alcohol Intake frequency: holidays/special occasions only Alcohol type: beer, wine and hard liquor Drug use: Never Caregiver/Support person: No Household members: none Housing: house Communication Needs: Blind Do you need help understanding health information?: Rarely Pets and animals: Yes (seeing eye dog) Pets and animals: cat(s) and dog(s) Sexually active: No Do you think of yourself as: straight/heterosexual Current gender identity: female What is your relationship status?: never How often do you talk on the phone with friends or family?: three or more times per week How often do you get together with friends or relatives?: never How often do you attend roman catholic or protestant services?: decline to answer Do you belong to any clubs or organized social groups?: no Panel score (0-1 are the most socially isolated patients): 1 What type of physical activity do you participate in: walking and other Details: horseback riding Duration: < 15 minutes/day Frequency: 1-2 times per week Jie/Advent: Restorationism Special jie needs: No Seatbelt use: sometimes Helmet use: Yes Drive intox or ride w/intox flatbed truck driver: No Do you feel safe at home: Yes Additional Social history: lives alone Meds Allergies and Home Medications Allergies Allergy/AdvReac Type Severity Reaction Status Date / Time erythromycin base AdvReac Intermediate GI upset Verified 12/19/20 13:08 Home Medications Medication Instructions Recorded Confirmed Type aspirin 81 mg tablet,delayed 81 mg PO DAILY 12/01/18 12/19/20 History release (Adult Aspirin Regimen) pseudoephedrine HCl 30 mg tablet 30 mg PO ONCE PRN 07/31/19 08/18/22 History (Sudafed) clobetasol 0.05 % topical foam 1 applic topical DAILY #100 grams 12/07/19 12/19/20 Rx triamcinolone acetonide 0.1 % 1 applic topical BID #80 grams 12/12/19 12/19/20 Rx topical cream omeprazole 20 mg capsule,delayed 20 mg PO DAILY #90 caps 08/16/22 08/18/22 Rx release Exam Const General: cooperative, healthy appearing, well developed and well groomed Nutritional Appearance: average body habitus Orientation: alert, awake and oriented x3 HENMT Head: normal to inspection, no palpable skull fracture, normocephalic and atraumatic Ears: hearing grossly normal bilaterally General nose exam: external nose normal and nares normal Face and sinus: normal facial exam and face symmetric Mouth: oral mucosae normal, lip normal and tongue normal Neck Neck: normal visual inspection, full ROM, no lymphadenopathy and trachea midline Thyroid: thyroid normal Carotids: normal carotid upstroke Lymphatic: no lymphadenopathy noted Resp Effort & Inspection: normal respiratory effort and able to speak in complete sentences Auscultation: clear to auscultation bilaterally Cardio Jugular venous pressure: no JVD Palpation: normal PMI Rate: regular rate Rhythm: regular rhythm Heart Sounds: S1 normal, S2 normal and normal, physiologic split S2 Bruits: no abdominal aortic bruits Pulses: normal peripheral pulses Skin General skin exam: no rashes or lesions noted, elasticity normal and turgor normal Neuro General: patient alert, patient awake, patient oriented x3, normal light touch, pain and propioception and CN's II-XI intact bilaterally Cognition: normal cognition Speech: speech normal Motor: muscle tone normal throughout and strength 5/5 throughout (normal muscle strength in all extremities except unable to assess left leg) Sensory Exam: no sensory deficits noted Results Imaging Chest x-ray: report reviewed and image reviewed EKG: image reviewed (NSR, small voltage, no acute ischemic changes, normal EKG) Imaging Studies: pelvic xray results: FINDINGS: BONES: There is an acute subcapital fracture of the left femur.? The distal fracture component is superiorly displaced.? The right femoral head is seated within the acetabulum.? No bony destructive lesion is seen. JOINTS: No dislocation present. The patient has a right hip prosthesis which is unchanged. SOFT TISSUE: Atherosclerosis.? IMPRESSION: Displaced subcapital left femoral neck fracture Labs 08/18/22 15:46 08/18/22 15:46 Labs: Laboratory Results - last 24 hr 08/18/22 08/18/22 08/18/22 15:46 15:46 15:46 WBC RBC Hgb Hct MCV MCH MCHC RDW Plt Count MPV Immature Gran % Neutrophils % Lymphocytes % Monocytes % Eosinophils % Basophils % Nucleated RBC % Absolute Neutrophils Absolute Lymphocytes Absolute Monocytes Absolute Eosinophils Absolute Basophils PT 9.7 INR 1.0 APTT 24.1 Sodium 146 H Potassium 3.9 Chloride 108 H Carbon Dioxide 22.9 Anion Gap 15.1 H BUN 12 Creatinine 0.7 Est GFR (CKD-EPI 2020) 87.37 Glucose 99 Calcium 9.2 Magnesium 1.9 Total Bilirubin 0.8 AST 31 ALT 26 Alkaline Phosphatase 76 Total Protein 7.7 Albumin 4.0 Ethyl Alcohol 172.1 H COVID-19 Source SARS-CoV-2 (PCR) 08/18/22 08/18/22 15:46 15:48 WBC 12.63 H RBC 3.96 Hgb 13.0 Hct 39.1 MCV 99 H MCH 32.8 MCHC 33.2 RDW 13.8 Plt Count 397 MPV 8.7 Immature Gran % 0.4 Neutrophils % 81.5 Lymphocytes % 10.6 Monocytes % 7.2 Eosinophils % 0.0 Basophils % 0.3 Nucleated RBC % 0.0 Absolute Neutrophils 10.29 H Absolute Lymphocytes 1.34 Absolute Monocytes 0.91 H Absolute Eosinophils 0.00 Absolute Basophils 0.04 PT INR APTT Sodium Potassium Chloride Carbon Dioxide Anion Gap BUN Creatinine Est GFR (CKD-EPI 2020) Glucose Calcium Magnesium Total Bilirubin AST ALT Alkaline Phosphatase Total Protein Albumin Ethyl Alcohol COVID-19 Source Nasal/Nares SARS-CoV-2 (PCR) Negative Last Vital Signs Temp 36.5 C 08/18/22 15:19 Pulse 94 H 08/18/22 15:19 Resp 16 08/18/22 15:19 BP 174/95 H 08/18/22 15:19 Pulse Ox 98 08/18/22 15:19 Time Spent Time spent with Patient: 55-74 minutes Time was spent: preparing to see the patient(eg.review tests), obtaining and/or reviewing separately otained hiistory, ordering medications,tests, procedures, referring, communicating with other health ocular care aide (speaking w/ Dr. Brooks), indepentently interpreting results, counseling the patient and care coordination
[2022-08-18] MEDS: HYDROmorphone 2 MG/ML SYR 1 MG IVP ×2 (18:00→21:17)
[2022-08-18 18:52] LABS: Bilirubin Negative (Negative); Blood Negative (Negative); Clarity Clear (Clear); Glucose Negative (Negative); Ketones 15 mg/dL (Negative); Leukocyte Esterase Negative (Negative); Nitrite Negative (Negative); Specific Gravity 1.025 (1.005-1.025); Urobilinogen 0.2 mg/dL (Up to 0.2); pH 5.5 (5-8)
[2022-08-18 19:14] LABS: Lab Add On Test DONE
[2022-08-18 19:15] LABS: Lab Add On Test DONE
[2022-08-18 19:17] LABS: *AMPHETAMINES SCREEN URINE Negative (Negative); *BARBITURATES SCREEN URINE Negative (Negative); *BENZODIAZEPINES SCREEN URINE Negative (Negative); Cannabinoids THC Negative (Negative); Cocaine Screen,Urine Negative (Negative); METHADONE URINE SCREEN Negative (Negative); OPIATES URINE SCREEN Negative (Negative)
[2022-08-18 19:19] LABS: Tricyclic Antidepressants Negative (Negative)
[2022-08-18 19:35] LABS: Creatine Kinase 351 U/L (26-192)
[2022-08-18 19:41] LABS: GGT 21 U/L (5-55)
--- NOTE | 2022-08-18 19:57 | OCONE_ITS ---
Date of service: 08/19/22 Time of Service: 14:34 History of Present Illness Narrative: Patient reports that she tripped over her dog yesterday morning and fell onto her left side. Subsequently she had severe left hip pain. Denies any other injuries. She denies having frequent falls, though she had previous right hip hemiarthroplasty after a fall approximately 3 years ago. Patient reports that she lives alone but has supportive friends/family close by. She currently reports severe pain in her hip with any movement but states that she has no pain at rest. Denies any chest pain or shortness of breath. Assessment and Plan Assessment and plan (1) Left displaced femoral neck fracture: Status: Acute Assessment and plan: 81 year old female with Left displaced femoral neck fracture Medical admission and optimization for surgery tomorrow: Left hip hemiarthroplasty NPO post MN, bedrest, pain control, Oswald, B/L SCDs, hold chemo dvt ppx pending OR Complete Left femur XRs for surgical planning [facility] protocol Anesthesia evaluation Patient denies any other injuries, exam shows distracting left hip deformity and pain, but no other sites of deformity or discomfort. She is sideways in the bed, unable to visualize right hip hemiarthroplasty which bothers her at times. Neuro vas intact of the left lower extremity. Admits to following in the morning, drinking alcohol, attempting to take care of her home, and not coming to the emergency department for what sounds like about 8 or more hours. She denies regular alcohol use. On further questioning she says she drinks maybe 2?3 times per week. I am concerned about significant alcoholism considering the a.m. heavy alcohol consumption after falling and breaking her hip in the delay in presenting to the ER. Decision to proceed with surgery today left hip hemiarthroplasty The risks, benefits, and alternatives were thoroughly discussed. Patient was counseled regarding pain management, expected postoperative course, and recovery timeline. All questions were answered. Informed consent was obtained. Agree and understand treatment plan. Follow up 10-14 days after surgery. Will call if any changes or concerns. Breathing comfortably on room air. No coughs or wheezes. 2+ left radial pulse. Regular rate and rhythm. 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 History of [place]miarthroplasty of right hip [place]06/28/19[place] [facility] [place] Mother , age 63 No problems noted. Father , age 70 Cancer LIVER CANCER Brother , age 45 No problems noted. Other Hypertension Social History Smoking/Tobacco Use Status: Never Second Hand Exposure: Yes Smoking risk assessment performed?: Yes Alcohol Intake: current Alcohol Intake frequency: a few times a week Alcohol type: beer, wine and hard liquor Drug use: Never Caregiver/Support person: No Household members: none Housing: house Communication Needs: Blind Do you need help understanding health information?: Rarely Pets and animals: Yes (seeing eye dog) Pets and animals: cat(s) and dog(s) Sexually active: No Do you think of yourself as: straight/heterosexual Current gender identity: female What is your relationship status?: never How often do you talk on the phone with friends or family?: three or more times per week How often do you get together with friends or relatives?: never How often do you attend holiness or hoahaoism services?: decline to answer Do you belong to any clubs or organized social groups?: no Panel score (0-1 are the most socially isolated patients): 1 What type of physical activity do you participate in: walking and other Details: horseback riding Duration: < 15 minutes/day Frequency: 1-2 times per week Jie/Presybeterian: Jewish Special jie needs: No Seatbelt use: sometimes Helmet use: Yes Drive intox or ride w/intox catering truck driver: No Do you feel safe at home: Yes Additional Social history: lives alone Exam Extrem Other: Patient resting comfortably with pillow under the left hip. No skin lesions or ecchymosis on the left hip. Demonstrates active ankle plantarflexion and dorsiflexion. 1+ pedal pulse. Ecchymosis on the left forearm that is nontender and is believed to be from blood draws and not injury. Left lower extremity shortened and actually appears internally rotated across her body. Complains of discomfort about the hip and groin. None more distally or any other extremities Results Last Vital Signs Temp 97.7 F 08/18/22 15:19 Pulse 92 H 08/18/22 18:15 Resp 11 L 08/18/22 18:20 BP 142/121 H 08/18/22 18:15 Pulse Ox 98 08/18/22 18:20 Labs 08/18/22 15:46 08/18/22 15:46 Labs: Laboratory Results - last 24 hr 08/18/22 08/18/22 08/18/22 15:46 15:46 15:46 WBC RBC Hgb Hct MCV MCH MCHC RDW Plt Count MPV Immature Gran % Neutrophils % Lymphocytes % Monocytes % Eosinophils % Basophils % Nucleated RBC % Absolute Neutrophils Absolute Lymphocytes Absolute Monocytes Absolute Eosinophils Absolute Basophils PT 9.7 INR 1.0 APTT 24.1 Sodium 146 H Potassium 3.9 Chloride 108 H Carbon Dioxide 22.9 Anion Gap 15.1 H BUN 12 Creatinine 0.7 Est GFR (CKD-EPI 2020) 87.37 Glucose 99 Calcium 9.2 Magnesium 1.9 Total Bilirubin 0.8 GGT AST 31 ALT 26 Alkaline Phosphatase 76 Lactate Dehydrogenase Creatine Kinase Total Protein 7.7 Albumin 4.0 Urine Color Urine Clarity Urine pH Ur Specific Cranks Urine Protein Urine Ketones Urine Blood Urine Nitrite Urine Bilirubin Urine Urobilinogen Ur Leukocyte Esterase Urine Glucose Urine Opiates Screen Urine Methadone Screen Ur Barbiturates Screen Ur Tricyclics Screen Ur Amphetamines Screen U Benzodiazepines Scrn Urine Cocaine Screen Ur THC Screen Ethyl Alcohol 172.1 H COVID-19 Source SARS-CoV-2 (PCR) Add-On Test Request 08/18/22 08/18/22 08/18/22 15:46 15:46 15:46 WBC 12.63 H RBC 3.96 Hgb 13.0 Hct 39.1 MCV 99 H MCH 32.8 MCHC 33.2 RDW 13.8 Plt Count 397 MPV 8.7 Immature Gran % 0.4 Neutrophils % 81.5 Lymphocytes % 10.6 Monocytes % 7.2 Eosinophils % 0.0 Basophils % 0.3 Nucleated RBC % 0.0 Absolute Neutrophils 10.29 H Absolute Lymphocytes 1.34 Absolute Monocytes 0.91 H Absolute Eosinophils 0.00 Absolute Basophils 0.04 PT INR APTT Sodium Potassium Chloride Carbon Dioxide Anion Gap BUN Creatinine Est GFR (CKD-EPI 2020) Glucose Calcium Magnesium Total Bilirubin GGT AST ALT Alkaline Phosphatase Lactate Dehydrogenase Creatine Kinase Total Protein Albumin Urine Color Urine Clarity Urine pH Ur Specific Cranks Urine Protein Urine Ketones Urine Blood Urine Nitrite Urine Bilirubin Urine Urobilinogen Ur Leukocyte Esterase Urine Glucose Urine Opiates Screen Urine Methadone Screen Ur Barbiturates Screen Ur Tricyclics Screen Ur Amphetamines Screen U Benzodiazepines Scrn Urine Cocaine Screen Ur THC Screen Ethyl Alcohol COVID-19 Source SARS-CoV-2 (PCR) Add-On Test Request DONE DONE 08/18/22 08/18/22 08/18/22 15:46 15:46 15:48 WBC RBC Hgb Hct MCV MCH MCHC RDW Plt Count MPV Immature Gran % Neutrophils % Lymphocytes % Monocytes % Eosinophils % Basophils % Nucleated RBC % Absolute Neutrophils Absolute Lymphocytes Absolute Monocytes Absolute Eosinophils Absolute Basophils PT INR APTT Sodium Potassium Chloride Carbon Dioxide Anion Gap BUN Creatinine Est GFR (CKD-EPI 2020) Glucose Calcium Magnesium Total Bilirubin GGT 21 AST ALT Alkaline Phosphatase Lactate Dehydrogenase Cancelled Creatine Kinase 351 H Total Protein Albumin Urine Color Urine Clarity Urine pH Ur Specific Cranks Urine Protein Urine Ketones Urine Blood Urine Nitrite Urine Bilirubin Urine Urobilinogen Ur Leukocyte Esterase Urine Glucose Urine Opiates Screen Urine Methadone Screen Ur Barbiturates Screen Ur Tricyclics Screen Ur Amphetamines Screen U Benzodiazepines Scrn Urine Cocaine Screen Ur THC Screen Ethyl Alcohol COVID-19 Source Nasal/Nares SARS-CoV-2 (PCR) Negative Add-On Test Request 08/18/22 08/18/22 18:42 18:42 WBC RBC Hgb Hct MCV MCH MCHC RDW Plt Count MPV Immature Gran % Neutrophils % Lymphocytes % Monocytes % Eosinophils % Basophils % Nucleated RBC % Absolute Neutrophils Absolute Lymphocytes Absolute Monocytes Absolute Eosinophils Absolute Basophils PT INR APTT Sodium Potassium Chloride Carbon Dioxide Anion Gap BUN Creatinine Est GFR (CKD-EPI 2020) Glucose Calcium Magnesium Total Bilirubin GGT AST ALT Alkaline Phosphatase Lactate Dehydrogenase Creatine Kinase Total Protein Albumin Urine Color Yellow Urine Clarity Clear Urine pH 5.5 Ur Specific Cranks 1.025 Urine Protein Negative Urine Ketones 15 H Urine Blood Negative Urine Nitrite Negative Urine Bilirubin Negative Urine Urobilinogen 0.2 Ur Leukocyte Esterase Negative Urine Glucose Negative Urine Opiates Screen Negative Urine Methadone Screen Negative Ur Barbiturates Screen Negative Ur Tricyclics Screen Negative Ur Amphetamines Screen Negative U Benzodiazepines Scrn Negative Urine Cocaine Screen Negative Ur THC Screen Negative Ethyl Alcohol COVID-19 Source SARS-CoV-2 (PCR) Add-On Test Request
[2022-08-18] MEDS: Normal Saline Flush 10 ML SYR IVP (21:18)
--- NOTE | 2022-08-18 21:29 | DI.VRAD_ITS ---
PROCEDURE INFORMATION: Exam: XR Left Femur Exam date and time: 08/18/2022 8:52 PM Age: 81 years old Clinical indication: Other: Left hip TECHNIQUE: Imaging protocol: Radiologic exam of the left femur. Views: 2 views. COMPARISON: CR XR HIP LT COMPLETE AP PELVIS 08/18/2022 4:42 PM FINDINGS: Bones/joints: Grossly stable left femoral neck fracture with superior displacement. The remainder of the femur is grossly intact Soft tissues: Unremarkable. IMPRESSION: Grossly stable appearing left femoral neck fracture Dictated and Authenticated by: Maninder Garcia MD. Ordering:JOAO Caballero MD
[2022-08-18 21:57] LABS: LDH 233 U/L (81-234)
[2022-08-18] MEDS: LORazepam 1 MG TAB PO (22:53)
[2022-08-19] VITALS (9 sets, daily range): BP systolic 116–139; BP diastolic 54–71; PULSE 70–96; RESP 12–19; TEMP 36–37.6; O2SAT 91–98; BMI 22.6
--- NOTE | 2022-08-19 03:12 | NUR.NOTE ---
Pt arrived to the unit @ around 1900 via stretcher; pt is AAOX4, appears to be in no distress, breathing even and unlabored and maintaining O2 sats within parameters on RA. Pt reports pain with moving but states no pain when at rest. VSS except BP slightly elevated 155/77. L.S clear and HRR; CIWA assessment per order was done and pt scored 0; pt reports last drink was in the morning to help with her leg pain. Personal items are in closet; pt is blind but is able to make needs known and using call andrade appropriately. Please see Flowsheet for further details Nursing Note:
[2022-08-19] MEDS: ACETAMINOPHEN 1,000 MG/100 ML BTL 400 MG IVPB ×3 (06:28→22:10)
[2022-08-19 06:30] LABS: Abs Immature Grans 0.02 10^3/uL (0.0-0.06); Absolute Basophil Count 0.03 10^3/uL (0.0-0.2); Absolute Eosinophil Count 0.02 10^3/uL (0.0-0.7); Absolute Monocyte Count 0.89 10^3/uL (0.1-0.8); Absolute Neutrophil Count 3.73 10^3/uL (1.2-6.7); Basophils % 0.5; Eosinophils % 0.3; HCT 34.1 % (36.0-46.0); HGB 11.6 g/dL (11.2-15.7); Immature Grans % 0.3; Lymphocytes % 26.6; MCV 97 fL (80-95); MPV 8.9 fL (8.0-11.0); Monocytes % 13.9; Neutrophils % 58.4; Platelet Count 329 10^3/uL (130-400); RBC 3.51 10^6/uL (3.93-5.22); RDW 13.9 % (11.7-14.6); RDW-SD 49.4 fL; WBC 6.39 10^3/uL (4.4-10.8)
[2022-08-19 06:41] LABS: Anion Gap 10.4 mmol/L (3-11); BUN 16 mg/dL (7-18); CO2 23.6 mmol/L (21.0-32.0); CREATININE 0.7 mg/dL (0.55-1.02); Calcium 8.7 mg/dL (8.5-10.1); Chloride 105 mmol/L (98-107); Estimated GFR 87.37 (mL/min/1.73m2); Glucose 92 mg/dL (74-106); Potassium 3.5 mmol/L (3.5-5.1); Sodium 139 mmol/L (136-145)
[2022-08-19 06:55] LABS: ALT 21 U/L (14-59); AST 22 U/L (15-37); Albumin 3.1 g/dL (3.4-5.0); Alkaline Phosphatase 62 U/L (46-116); Bilirubin, Total 1.3 mg/dL (0.2-1.0); Magnesium 1.8 mg/dL (1.8-2.4); PHOSPHORUS 3.4 mg/dL (2.6-4.7); Total Protein 6.2 g/dL (6.4-8.2)
[2022-08-19 07:46] LABS: Bilirubin, Direct 0.3 mg/dL (0.0-0.2)
[2022-08-19] MEDS: Lactated Ringers 1,000 ML 100 ML IV ×3 (08:04→19:47)
[2022-08-19] MEDS: Omeprazole 20 MG CAPCR PO (08:05)
[2022-08-19] MEDS: Normal Saline Flush 10 ML SYR IVP (08:08)
[2022-08-19] MEDS: HYDROmorphone 2 MG/ML SYR 1 MG IVP ×3 (08:34→13:23)
[2022-08-19] MEDS: oxyCODONE 5 MG TAB PO (09:12)
--- NOTE | 2022-08-19 11:17 | PDOC.CMIN ---
- If Service Date Differs Date of service: 08/19/22 Time of Service: 11:17 Care Management Initial Assess REASON FOR HOSPITALIZATION:: Left Subcapital Femur Fracture PAST MEDICAL HISTORY/PAST SURGICAL HISTORY:: All Active Problems: Tinnitus (Acute 04/07/15), Eczema (Acute 04/07/15),. Left displaced femoral neck fracture (Acute 08/18/22), Skin mole (Acute),. Muscle spasms of neck (Acute), Hip pain, right (Acute), Seborrheic dermatitis (Acute), Eczema of both external ears (Acute), Blindness (Acute), Duodenitis determined by biopsy (Acute), Dysphagia (Acute), and. Agee's esophagus (Acute). 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 Esophageal stricture, and Subarachnoid hemorrhage. Surgical History: H/O esophagogastroduodenoscopy (~12/11/18), H/O tubal ligation, History of arthroscopic knee surgery, History of cataract surgery - only on one eye pt not clear as to which side, and History of hemiarthroplasty of right hip (06/28/19[place] [facility] [place] PREVIOUS FUNCTIONAL STATUS/SOCIAL/FAMILY SUPPORTS:: Jazmine lives alone in [facility]. She has been blind since and has a seeing eye dog. She also has [place] Jazmine states she has no family but has neighbors and many friends who are supportive of her. She uses a local taxi service to get to and from appointments and is independent with her ADLs at baseline. CURRENT FUNCTIONAL STATUS:: Jazmine is lying in bed when comes to meet with her. She is pleasant and easily engages in conversation. She expresses concern about her animals and with 's assistance, she is able to reach a neighbor ([phone]) who agrees to tend to her animals while she is inpatient. ADVANCE DIRECTIVES:: None on file. Has patient been provided with info about the portal/API?: No Did the patient sign up for the portal?: No CODE STATUS:: Full Code INSURANCE COVERAGE / FINANCIAL ISSUES:: [employer] Medicare Supplement and Medicare. CURRENT HOME/COMMUNITY SERVICES/EQUIPMENT:: No home services. Patient uses a taxi service for transportation. Patient owns a cane and has a seeing eye dog. PRIMARY CARE PHYSICIAN:: KIYA Nath POTENTIAL DISCHARGE NEEDS:: Follow up appointments with PCP, surgeon, and potential new Home Health services. PATIENT/FAMILY EDUCATION NEEDS:: Review of discharge instructions including medications, limitations and follow up plan of care; discuss Ask Me Three and self management. ANTICIPATED BARRIERS TO DISCHARGE:: None identified at this time. TRANSPORTATION:: Via private vehicle with a friend. PLAN:: Jazmine will likely be discharged home with new Home Health RN, PT and OT services when medically cleared by provider. She will follow up with her PCP, surgeon and plan of care as instructed. She will be transported home by a friend via private vehicle when ready. CM will continue to support Jazmine and any discharge planning needs.
--- NOTE | 2022-08-19 12:02 | W.ANESPRE ---
General Info Date of Service Date Performed: 08/19/22 Height: 5 ft 6 in Weight: 63.7 kg Body Mass Index (BMI): 22.6 Surgical Procedure: Operation Date: 08/19/22 13:55 Proposed Procedure Side Surgeon p Hip Flaco Arthroplasty Left Federico Padilla MD Meds Allergies and Home Medications Allergies Allergy/AdvReac Type Severity Reaction Status Date / Time erythromycin base AdvReac Intermediate GI upset Verified 12/19/20 13:08 Home Medication Medication Instructions Recorded aspirin 81 mg tablet,delayed 81 mg PO DAILY 12/01/18 release (Adult Aspirin Regimen) pseudoephedrine HCl 30 mg tablet 30 mg PO ONCE PRN 07/31/19 (Sudafed) clobetasol 0.05 % topical foam 1 applic topical DAILY #100 grams 12/07/19 triamcinolone acetonide 0.1 % 1 applic topical BID #80 grams 12/12/19 topical cream omeprazole 20 mg capsule,delayed 20 mg PO DAILY #90 caps 08/16/22 release Current Visit Medications: Current Medications Generic Name Dose Route Start Last Admin Trade Name Freq PRN Reason Stop Dose Admin Al Hydrox/Mg Hydrox/Simethicone 30 ml 08/18/22 17:42 Mylanta Suspension 30 Ml Cup PO Q2H PRN PRN Dimethicone/Zinc Oxide 0 gm 08/18/22 17:42 Irlanda Protect Cream 142 Gm Tube TP PRN PRN Docusate Sodium 100 mg 08/18/22 17:42 Docusate Sodium 100 Mg Cap PO TID PRN PRN Hydromorphone HCl 1 mg 08/18/22 15:38 08/19/22 11:28 Hydromorphone 2 Mg/Ml Syr IVP 1 mg PRN PRN Administration Hydromorphone HCl 1 mg 08/18/22 17:46 08/18/22 21:17 Hydromorphone 2 Mg/Ml Syr IVP 1 mg Q2H PRN PRN Administration Sodium Chloride 500 mls @ 0 mls/hr 08/18/22 17:42 Saline 500ml Bag IV PRN PRN As Directed Acetaminophen 1,000 mg in 100 mls @ 400 mls/hr 08/18/22 22:00 08/19/22 07:00 Ofirmev IVPB Infused Q8H JARRET Infusion Ringer's Solution 1,000 mls @ 100 mls/hr 08/19/22 07:30 08/19/22 08:04 IV 100 mls/hr INFUSION JARRET Administration IV Miscellaneous Supplies 1 each 08/18/22 17:45 Iv Access IV DIRECTED JARRET Magnesium Hydroxide 30 ml 08/18/22 17:42 Milk Of Magnesia 30 Ml Cup PO DAILY PRN PRN Omeprazole 20 mg 08/20/22 07:30 Omeprazole 20 Mg Capcr PO DAILY@0730 JARRET Ondansetron HCl 4 mg 08/18/22 21:15 Ondansetron 4 Mg/2 Ml Vial IVP Q4H PRN PRN Oxycodone HCl 5 mg 08/18/22 17:46 08/19/22 09:12 Oxycodone 5 Mg Tab PO 5 mg Q4H PRN PRN Administration Polyethylene Glycol 17 gm 08/18/22 17:42 Polyethylene Glycol 3350 17 Gm Packet PO DAILY PRN PRN Constipation Sodium Chloride 0 ml 08/18/22 17:42 Normal Saline Flush 10 Ml Syr IVP PRN PRN PFSH Active Problems Active Problems: Problem Status Onset Code Tinnitus 04/07/15 H93.19 Eczema 04/07/15 L30.9 Left displaced femoral neck fracture 08/18/22 S72.002A Skin mole D22.9 Muscle spasms of neck M62.838 Hip pain, right M25.551 Seborrheic dermatitis L21.9 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 History of hemiarthroplasty of right hip (06/28/19) [facility] [place] Tobacco Smoking/Tobacco Use Status: Never Passive smoking exposure: Yes Second hand exposure: Yes Alcohol Alcohol Intake: current Alcohol intake frequency: holidays/special occasions only Alcohol type: beer, wine and hard liquor Substance Use Substance use: Never Vital Signs and Lab Results Vital Signs Most Recent Vital Signs in EMR: Most Recent Vital Signs Temp Pulse Resp BP Pulse Ox 37.5 C 96 H 16 116/64 94 08/19/22 06:32 08/19/22 06:32 08/19/22 06:32 08/19/22 06:32 08/19/22 06:32 Lab Results 08/19/22 05:46 08/19/22 05:46 Blood Type / Crossmatch: No Data to Display Complete Blood Count: White Blood Count 6.39 10^3/uL (4.4-10.8) 08/19/22 05:46 Red Blood Count 3.51 10^6/uL (3.93-5.22) L 08/19/22 05:46 Hemoglobin 11.6 g/dL (11.2-15.7) 08/19/22 05:46 Hematocrit 34.1 % (36.0-46.0) L 08/19/22 05:46 Platelet Count 329 10^3/uL (130-400) 08/19/22 05:46 Complete Metabolic Panel: Sodium 139 mmol/L (136-145) 08/19/22 05:46 Potassium 3.5 mmol/L (3.5-5.1) 08/19/22 05:46 Chloride 105 mmol/L (98-107) 08/19/22 05:46 Carbon Dioxide 23.6 mmol/L (21.0-32.0) 08/19/22 05:46 BUN 16 mg/dL (7-18) 08/19/22 05:46 Creatinine 0.7 mg/dL (0.55-1.02) 08/19/22 05:46 Est GFR (CKD-EPI 2020) 87.37 (mL/min/1.73m2) 08/19/22 05:46 Magnesium 1.8 mg/dL (1.8-2.4) 08/19/22 05:46 Calcium 8.7 mg/dL (8.5-10.1) 08/19/22 05:46 Albumin 3.1 g/dL (3.4-5.0) L 08/19/22 05:46 Glucose 92 mg/dL (74-106) 08/19/22 05:46 Liver Function Panel: Alanine Aminotransferase (ALT/SGPT) 21 U/L (14-59) 08/19/22 05:46 Aspartate Amino Transf (AST/SGOT) 22 U/L (15-37) 08/19/22 05:46 Gamma Glutamyl Transpeptidase 21 U/L (5-55) 08/18/22 15:46 Coagulation Panel: INR International Normalized Ratio 1.0 (0.9-1.1) 08/18/22 15:46 Prothrombin Time 9.7 sec (9.3-11.0) 08/18/22 15:46 Activated Partial Thromboplast Time 24.1 sec (21.5-31.9) 08/18/22 15:46 Cardiac Panel: Creatine Kinase 351 U/L (26-192) H 08/18/22 Arterial Blood Gas: No Data to Display Venous Blood Gas: No Data to Display Pancreas Panel: No Data to Display Thyroid Panel: No Data to Display Infectious Disease: Coronavirus (COVID-19)(PCR) Negative (Negative) 08/18/22 15:48 Coronavirus 2019 Source Nasal/Nares 08/18/22 15:48 Blood Cultures: No Data to Display Toxicology Panel: Ethyl Alcohol Level 172.1 mg/dL (<10) H 08/18/22 15:46 Urine Amphetamines Screen Negative (Negative) 08/18/22 18:42 Urine Benzodiazepines Screen Negative (Negative) 08/18/22 18:42 Urine Barbiturates Screen Negative (Negative) 08/18/22 18:42 Urine Cocaine Screen Negative (Negative) 08/18/22 18:42 Urine Methadone Screen Negative (Negative) 08/18/22 18:42 Urine Opiates Screen Negative (Negative) 08/18/22 18:42 Ur Tricyclic Antidepressants Screen Negative (Negative) 08/18/22 18:42 Ur Tetrahydrocannabinol (THC) Scrn Negative (Negative) 08/18/22 18:42 Imaging and Studies Imaging and Studies Study information below may be from another EMR and interpreted by another provider. Please see original notes in EMR for more complete details. EKG Summary: 08/18/2022: Exam: Resting ECG Reason for Exam: OR Patient Location: E HR:85 bpm ECG Measurements Heart Rate 85 AXIS HI 162 P 66 QRSd 97 QRS 77 QT 389 T68 QTc 464 Conclusion Sinus rhythm...normal P axis, V-rate 60- 99 NSR 85, nl intervals and EKG
--- NOTE | 2022-08-19 13:22 | PGE_ITS ---
Date of Service Date of service: 08/19/22 Time of Service: 13:22 Assessment and Plan Assessment and plan (1) Left displaced femoral neck fracture: Status: Acute Assessment and plan: Continue scheduled IV Tylenol, IV narcotic analgesics. Postoperatively will add ketorolac to her regimen. Keep n.p.o. for surgery later this afternoon. IV fluids did not get started last night and mistakenly was left off the admitting orders. Earlier this morning I started on LR at 100 mL an hour. Urine for Oswald appears to be clear light katty. I have asked nursing to put a urimeter o n it so we keep close monitoring of her urine output. Patient is medically stable with acceptable risk for surgical repair of her left femoral neck fracture. Subjective Subjective Interval history since last seen: Patient has ongoing pain in her left thigh which radiates more into the medial thigh rather than the lateral thigh. Says anytime she tries to move the leg she gets in exquisite pain. Exam Narrative Exam Narrative: Patient is alert and oriented. Lungs are clear Heart is regular rate and rhythm Abdomen soft nontender active bowel sounds. Lower extremities left leg is foreshortened and internally rotated. There is tenderness over the femoral neck as well as the mid femur. Pedal pulses are intact without cyanosis. Objective Last Vital Signs Temp 37.5 C 08/19/22 06:32 Pulse 96 H 08/19/22 06:32 Resp 16 08/19/22 06:32 BP 116/64 08/19/22 06:32 Pulse Ox 94 08/19/22 06:32 Laboratory Results - last 24 hr 08/18/22 08/18/22 08/18/22 15:46 15:46 15:46 WBC RBC Hgb Hct MCV MCH MCHC RDW Plt Count MPV Immature Gran % Neutrophils % Lymphocytes % Monocytes % Eosinophils % Basophils % Nucleated RBC % Absolute Neutrophils Absolute Lymphocytes Absolute Monocytes Absolute Eosinophils Absolute Basophils PT 9.7 INR 1.0 APTT 24.1 Sodium 146 H Potassium 3.9 Chloride 108 H Carbon Dioxide 22.9 Anion Gap 15.1 H BUN 12 Creatinine 0.7 Est GFR (CKD-EPI 2020) 87.37 Glucose 99 Calcium 9.2 Phosphorus Magnesium 1.9 Total Bilirubin 0.8 Conjugated Bilirubin GGT AST 31 ALT 26 Alkaline Phosphatase 76 Lactate Dehydrogenase Creatine Kinase Total Protein 7.7 Albumin 4.0 Urine Color Urine Clarity Urine pH Ur Specific [place] Urine Protein Urine Ketones Urine Blood Urine Nitrite Urine Bilirubin Urine Urobilinogen Ur Leukocyte Esterase Urine Glucose Urine Opiates Screen Urine Methadone Screen Ur Barbiturates Screen Ur Tricyclics Screen Ur Amphetamines Screen U Benzodiazepines Scrn Urine Cocaine Screen Ur THC Screen Ethyl Alcohol 172.1 H COVID-19 Source SARS-CoV-2 (PCR) Add-On Test Request 08/18/22 08/18/22 08/18/22 15:46 15:46 15:46 WBC 12.63 H RBC 3.96 Hgb 13.0 Hct 39.1 MCV 99 H MCH 32.8 MCHC 33.2 RDW 13.8 Plt Count 397 MPV 8.7 Immature Gran % 0.4 Neutrophils % 81.5 Lymphocytes % 10.6 Monocytes % 7.2 Eosinophils % 0.0 Basophils % 0.3 Nucleated RBC % 0.0 Absolute Neutrophils 10.29 H Absolute Lymphocytes 1.34 Absolute Monocytes 0.91 H Absolute Eosinophils 0.00 Absolute Basophils 0.04 PT INR APTT Sodium Potassium Chloride Carbon Dioxide Anion Gap BUN Creatinine Est GFR (CKD-EPI 2020) Glucose Calcium Phosphorus Magnesium Total Bilirubin Conjugated Bilirubin GGT AST ALT Alkaline Phosphatase Lactate Dehydrogenase Creatine Kinase Total Protein Albumin Urine Color Urine Clarity Urine pH Ur Specific [place] Urine Protein Urine Ketones Urine Blood Urine Nitrite Urine Bilirubin Urine Urobilinogen Ur Leukocyte Esterase Urine Glucose Urine Opiates Screen Urine Methadone Screen Ur Barbiturates Screen Ur Tricyclics Screen Ur Amphetamines Screen U Benzodiazepines Scrn Urine Cocaine Screen Ur THC Screen Ethyl Alcohol COVID-19 Source SARS-CoV-2 (PCR) Add-On Test Request DONE DONE 08/18/22 08/18/22 08/18/22 15:46 15:46 15:48 WBC RBC Hgb Hct MCV MCH MCHC RDW Plt Count MPV Immature Gran % Neutrophils % Lymphocytes % Monocytes % Eosinophils % Basophils % Nucleated RBC % Absolute Neutrophils Absolute Lymphocytes Absolute Monocytes Absolute Eosinophils Absolute Basophils PT INR APTT Sodium Potassium Chloride Carbon Dioxide Anion Gap BUN Creatinine Est GFR (CKD-EPI 2020) Glucose Calcium Phosphorus Magnesium Total Bilirubin Conjugated Bilirubin GGT 21 AST ALT Alkaline Phosphatase Lactate Dehydrogenase Cancelled Creatine Kinase 351 H Total Protein Albumin Urine Color Urine Clarity Urine pH Ur Specific [place] Urine Protein Urine Ketones Urine Blood Urine Nitrite Urine Bilirubin Urine Urobilinogen Ur Leukocyte Esterase Urine Glucose Urine Opiates Screen Urine Methadone Screen Ur Barbiturates Screen Ur Tricyclics Screen Ur Amphetamines Screen U Benzodiazepines Scrn Urine Cocaine Screen Ur THC Screen Ethyl Alcohol COVID-19 Source Nasal/Nares SARS-CoV-2 (PCR) Negative Add-On Test Request 08/18/22 08/18/22 08/18/22 18:42 18:42 21:33 WBC RBC Hgb Hct MCV MCH MCHC RDW Plt Count MPV Immature Gran % Neutrophils % Lymphocytes % Monocytes % Eosinophils % Basophils % Nucleated RBC % Absolute Neutrophils Absolute Lymphocytes Absolute Monocytes Absolute Eosinophils Absolute Basophils PT INR APTT Sodium Potassium Chloride Carbon Dioxide Anion Gap BUN Creatinine Est GFR (CKD-EPI 2020) Glucose Calcium Phosphorus Magnesium Total Bilirubin Conjugated Bilirubin GGT AST ALT Alkaline Phosphatase Lactate Dehydrogenase 233 Creatine Kinase Total Protein Albumin Urine Color Yellow Urine Clarity Clear Urine pH 5.5 Ur Specific [place] 1.025 Urine Protein Negative Urine Ketones 15 H Urine Blood Negative Urine Nitrite Negative Urine Bilirubin Negative Urine Urobilinogen 0.2 Ur Leukocyte Esterase Negative Urine Glucose Negative Urine Opiates Screen Negative Urine Methadone Screen Negative Ur Barbiturates Screen Negative Ur Tricyclics Screen Negative Ur Amphetamines Screen Negative U Benzodiazepines Scrn Negative Urine Cocaine Screen Negative Ur THC Screen Negative Ethyl Alcohol COVID-19 Source SARS-CoV-2 (PCR) Add-On Test Request 08/19/22 08/19/22 08/19/22 05:46 05:46 05:46 WBC 6.39 RBC 3.51 L Hgb 11.6 Hct 34.1 L MCV 97 H MCH 33.0 MCHC 34.0 RDW 13.9 Plt Count 329 MPV 8.9 Immature Gran % 0.3 Neutrophils % 58.4 Lymphocytes % 26.6 Monocytes % 13.9 Eosinophils % 0.3 Basophils % 0.5 Nucleated RBC % 0.0 Absolute Neutrophils 3.73 Absolute Lymphocytes 1.70 Absolute Monocytes 0.89 H Absolute Eosinophils 0.02 Absolute Basophils 0.03 PT INR APTT Sodium 139 Potassium 3.5 Chloride 105 Carbon Dioxide 23.6 Anion Gap 10.4 BUN 16 Creatinine 0.7 Est GFR (CKD-EPI 2020) 87.37 Glucose 92 Calcium 8.7 Phosphorus 3.4 Magnesium 1.8 Total Bilirubin 1.3 H Conjugated Bilirubin 0.3 H GGT AST 22 ALT 21 Alkaline Phosphatase 62 Lactate Dehydrogenase Creatine Kinase Total Protein 6.2 L Albumin 3.1 L Urine Color Urine Clarity Urine pH Ur Specific [place] Urine Protein Urine Ketones Urine Blood Urine Nitrite Urine Bilirubin Urine Urobilinogen Ur Leukocyte Esterase Urine Glucose Urine Opiates Screen Urine Methadone Screen Ur Barbiturates Screen Ur Tricyclics Screen Ur Amphetamines Screen U Benzodiazepines Scrn Urine Cocaine Screen Ur THC Screen Ethyl Alcohol COVID-19 Source SARS-CoV-2 (PCR) Add-On Test Request PAWSS Have you Been Recently Intoxicated or Drunk Within the Last 30 days?: No Have you Ever Experienced Previous Episodes of Alcohol Withdrawal?: No Have you ever Experienced Withdrawal Seizures?: No Have you ever Experienced Delirium Tremens(DT)s?: No Have you ever undergone Alcohol Rehabilitation Treatment (i.e, inpt ot outpatient treatment programs)?: No Have you ever Experienced Blackouts?: No Have you ever Combined Alcohol with other Downers within the last 90 days?: No Have you ever Combined Alcohol with any other Substance of Abuse during the last 90 days?: No Positive Blood Alcohol level on Presentation? [PCS.BAL]: Yes Evidence of Increased Autonomic Activity (i.e. HR>120, tremor, sweating, agitation, nausea)?: No Result: 1 Time Spent with Patient Time Spent with Patient: 25-34 minutes Time was spent: preparing to see the patient(eg.review tests), ordering medications,tests, procedures, indepentently interpreting results, counseling the patient and care coordination
--- NOTE | 2022-08-19 14:09 | W.ANESPRE ---
General Info Date of Service Date Performed: 08/19/22 Height: 5 ft 6 in Weight: 63.7 kg Body Mass Index (BMI): 22.6 Surgical Procedure: Operation Date: 08/19/22 13:55 Proposed Procedure Side Surgeon p Hip Flaco Arthroplasty Left Federico Padilla MD Meds Allergies and Home Medications Allergies Allergy/AdvReac Type Severity Reaction Status Date / Time erythromycin base AdvReac Intermediate GI upset Verified 12/19/20 13:08 Home Medication Medication Instructions Recorded aspirin 81 mg tablet,delayed 81 mg PO DAILY 12/01/18 release (Adult Aspirin Regimen) pseudoephedrine HCl 30 mg tablet 30 mg PO ONCE PRN 07/31/19 (Sudafed) clobetasol 0.05 % topical foam 1 applic topical DAILY #100 grams 12/07/19 triamcinolone acetonide 0.1 % 1 applic topical BID #80 grams 12/12/19 topical cream omeprazole 20 mg capsule,delayed 20 mg PO DAILY #90 caps 08/16/22 release Current Visit Medications: Current Medications Generic Name Dose Route Start Last Admin Trade Name Freq PRN Reason Stop Dose Admin Al Hydrox/Mg Hydrox/Simethicone 30 ml 08/18/22 17:42 Mylanta Suspension 30 Ml Cup PO Q2H PRN PRN Dimethicone/Zinc Oxide 0 gm 08/18/22 17:42 Irlanda Protect Cream 142 Gm Tube TP PRN PRN Docusate Sodium 100 mg 08/18/22 17:42 Docusate Sodium 100 Mg Cap PO TID PRN PRN Hydromorphone HCl 1 mg 08/18/22 15:38 08/19/22 11:28 Hydromorphone 2 Mg/Ml Syr IVP 1 mg PRN PRN Administration Hydromorphone HCl 1 mg 08/18/22 17:46 08/19/22 13:23 Hydromorphone 2 Mg/Ml Syr IVP 1 mg Q2H PRN PRN Administration Sodium Chloride 500 mls @ 0 mls/hr 08/18/22 17:42 Saline 500ml Bag IV PRN PRN As Directed Acetaminophen 1,000 mg in 100 mls @ 400 mls/hr 08/18/22 22:00 08/19/22 14:05 Ofirmev IVPB 400 mls/hr Q8H JARRET Administration Ringer's Solution 1,000 mls @ 100 mls/hr 08/19/22 07:30 08/19/22 08:04 IV 100 mls/hr INFUSION JARRET Administration IV Miscellaneous Supplies 1 each 08/18/22 17:45 Iv Access IV DIRECTED JARRET Magnesium Hydroxide 30 ml 08/18/22 17:42 Milk Of Magnesia 30 Ml Cup PO DAILY PRN PRN Omeprazole 20 mg 08/20/22 07:30 Omeprazole 20 Mg Capcr PO DAILY@0730 JARRET Ondansetron HCl 4 mg 08/18/22 21:15 Ondansetron 4 Mg/2 Ml Vial IVP Q4H PRN PRN Oxycodone HCl 5 mg 08/18/22 17:46 08/19/22 09:12 Oxycodone 5 Mg Tab PO 5 mg Q4H PRN PRN Administration Polyethylene Glycol 17 gm 08/18/22 17:42 Polyethylene Glycol 3350 17 Gm Packet PO DAILY PRN PRN Constipation Sodium Chloride 0 ml 08/18/22 17:42 Normal Saline Flush 10 Ml Syr IVP PRN PRN PFSH Active Problems Active Problems: Problem Status Onset Code Tinnitus 04/07/15 H93.19 Eczema 04/07/15 L30.9 Left displaced femoral neck fracture 08/18/22 S72.002A Skin mole D22.9 Muscle spasms of neck M62.838 Hip pain, right M25.551 Seborrheic dermatitis L21.9 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 History of hemiarthroplasty of right hip (06/28/19) [facility] [place] Tobacco Smoking/Tobacco Use Status: Never Passive smoking exposure: Yes Second hand exposure: Yes Alcohol Alcohol Intake: current Alcohol intake frequency: a few times a week Alcohol type: beer, wine and hard liquor Substance Use Substance use: Never Vital Signs and Lab Results Vital Signs Most Recent Vital Signs in EMR: Most Recent Vital Signs Temp Pulse Resp BP Pulse Ox 37.5 C 96 H 16 116/64 94 08/19/22 06:32 08/19/22 06:32 08/19/22 06:32 08/19/22 06:32 08/19/22 06:32 Lab Results 08/19/22 05:46 08/19/22 05:46 Blood Type / Crossmatch: No Data to Display Complete Blood Count: White Blood Count 6.39 10^3/uL (4.4-10.8) 08/19/22 05:46 Red Blood Count 3.51 10^6/uL (3.93-5.22) L 08/19/22 05:46 Hemoglobin 11.6 g/dL (11.2-15.7) 08/19/22 05:46 Hematocrit 34.1 % (36.0-46.0) L 08/19/22 05:46 Platelet Count 329 10^3/uL (130-400) 08/19/22 05:46 Complete Metabolic Panel: Sodium 139 mmol/L (136-145) 08/19/22 05:46 Potassium 3.5 mmol/L (3.5-5.1) 08/19/22 05:46 Chloride 105 mmol/L (98-107) 08/19/22 05:46 Carbon Dioxide 23.6 mmol/L (21.0-32.0) 08/19/22 05:46 BUN 16 mg/dL (7-18) 08/19/22 05:46 Creatinine 0.7 mg/dL (0.55-1.02) 08/19/22 05:46 Est GFR (CKD-EPI 2020) 87.37 (mL/min/1.73m2) 08/19/22 05:46 Magnesium 1.8 mg/dL (1.8-2.4) 08/19/22 05:46 Calcium 8.7 mg/dL (8.5-10.1) 08/19/22 05:46 Albumin 3.1 g/dL (3.4-5.0) L 08/19/22 05:46 Glucose 92 mg/dL (74-106) 08/19/22 05:46 Liver Function Panel: Alanine Aminotransferase (ALT/SGPT) 21 U/L (14-59) 08/19/22 05:46 Aspartate Amino Transf (AST/SGOT) 22 U/L (15-37) 08/19/22 05:46 Gamma Glutamyl Transpeptidase 21 U/L (5-55) 08/18/22 15:46 Coagulation Panel: INR International Normalized Ratio 1.0 (0.9-1.1) 08/18/22 15:46 Prothrombin Time 9.7 sec (9.3-11.0) 08/18/22 15:46 Activated Partial Thromboplast Time 24.1 sec (21.5-31.9) 08/18/22 15:46 Cardiac Panel: Creatine Kinase 351 U/L (26-192) H 08/18/22 Arterial Blood Gas: No Data to Display Venous Blood Gas: No Data to Display Pancreas Panel: No Data to Display Thyroid Panel: No Data to Display Infectious Disease: Coronavirus (COVID-19)(PCR) Negative (Negative) 08/18/22 15:48 Coronavirus 2019 Source Nasal/Nares 08/18/22 15:48 Blood Cultures: No Data to Display Toxicology Panel: Ethyl Alcohol Level 172.1 mg/dL (<10) H 08/18/22 15:46 Urine Amphetamines Screen Negative (Negative) 08/18/22 18:42 Urine Benzodiazepines Screen Negative (Negative) 08/18/22 18:42 Urine Barbiturates Screen Negative (Negative) 08/18/22 18:42 Urine Cocaine Screen Negative (Negative) 08/18/22 18:42 Urine Methadone Screen Negative (Negative) 08/18/22 18:42 Urine Opiates Screen Negative (Negative) 08/18/22 18:42 Ur Tricyclic Antidepressants Screen Negative (Negative) 08/18/22 18:42 Ur Tetrahydrocannabinol (THC) Scrn Negative (Negative) 08/18/22 18:42 Anesthesia Assessment and Plan Anesthesia History Personal History: No History of Anesthesia Complications Family History: No Family History of Anesthesia Complications Exercise Tolerance Exercise Tolerance: Metabolic Equivalents>4 Cardiac & Pulmonary Exam Cardiac Exam: Normal S1/S2 Heart Sounds Pulmonary Exam: Clear Bilateral Breath Sounds Implantable Cardiac Device Does patient have a Pacemaker or an ICD?: No Airway Exam Known Difficult Airway: No Mallampati Class: 3 Mouth Opening: Narrow (< 3cm) Thyromental Distance: Greater than 3 cm Neck Range of Motion: Limited ROM Neck Circumference: Normal Teeth Condition: Generalized Poor Dentition ASA Classification ASA Score: ASA 2 Emergency Case?: No NPO Status NPO Status: NPO Clears >2 hours, Solids >8 hours Anesthesia Plan Resuscitation Status: Full Code Anesthesia Technique: General Anesthesia Airway Planned: Endotracheal Tube Pain Management: Surgeon and patient request nerve block Monitors Used: Standard Monitors Preoperative Comments:: 81 yo female for hip fracture repair. Sig PMHx: GERD/barretts, denies other major. Previous Anes: - mac 3 grade 1.
[2022-08-19] MEDS: ceFAZolin 2 GM/50 ML BAG 200 GM (15:03)
[2022-08-19] MEDS: Tranexamic Acid 1,000 MG/10 ML VIAL 1000 MG (15:30)
--- NOTE | 2022-08-19 15:48 | W.ANESNERVE ---
Nerve Block Single Injection Procedure Date and Time Date Performed: 08/19/22 Procedure Start: 15:15 Location Where Procedure Performed Procedure Location: Operating Room Procedure Stop: 15:20 Reason Performed: Postoperative Analgesia Requesting Provider: Federico Padilla Timeout Performed Timeout Performed: Yes Monitoring Used ECG, Blood Pressure, SpO2 and ETCO2 Sterility Sterility: Hand Hygiene, Surgical Cap, Surgical Mask, Sterile Gloves and Chlorhexidine Sedation Given During Procedure Sedation Given (Indicate Dose Given): No Sedation given Patient Mental Status Patient Mental Status: Performed under general anesthesia Nerve Block 1st Nerve Block: Laterality: Left Block Type: CHRISTIAN Ultrasound Image Saved?: Yes Needle / Catheter Used: 100mm SonoPlex II Local Anesthetic Bolus (Indicate Dose Given): Bupivacaine 0.375% Dose:: 15 mL Additives (Indicate Dose Given): Epinephrine to make 1:200,000 (5mcg/ml) Dose:: 75 mcg Ultrasound: Sterile probe cover and gel used Nerve Stimulator: Not Used Paresthesia: None Procedure Tolerated: No Complications Procedure Outcome: Successful Performed By: Tone Ramirez 2nd Nerve Block: Laterality: Left Block Type: Other (lateral femoral cutaneous. ) Ultrasound Image Saved?: Yes Needle / Catheter Used: 100mm SonoPlex II Local Anesthetic Bolus (Indicate Dose Given): Bupivacaine 0.375% Dose:: 5 mL Additives (Indicate Dose Given): Epinephrine to make 1:200,000 (5mcg/ml) Dose:: 25 mcg Ultrasound: Sterile probe cover and gel used Nerve Stimulator: Not Used Paresthesia: None Procedure Tolerated: No Complications Procedure Outcome: Successful Performed By: Tone Ramirez
--- NOTE | 2022-08-19 17:30 | DI.RAD_ITS ---
Exam(s) XR HIP LT COMPLETE AP PELVIS EXAM: XR HIP LT COMPLETE AP PELVIS CLINICAL HISTORY: Postop hip fx david. TECHNIQUE: 2D digital imaging was performed. COMPARISON: CR XR HIP RT AP LAT ONLY from 08/30/2019 CR,XR XR FEMUR LT from 08/18/2022 FINDINGS: Two views: Components of the newly placed left hip prosthesis appear be a satisfactory position alignment. No n ew fractures. No loosening evident. Prosthesis again noted in the opposite-right hip. IMPRESSION: As above. DATA REPOSITORY: RADIATION DOSE DELIVERED:
--- NOTE | 2022-08-19 17:44 | ROE_ITS ---
Date of service: 08/19/22 Time of Service: 17:45 Operative Note Operative Note DATE OF PROCEDURE: 08/19/22 PRE-OP DIAGNOSIS: Left displaced femoral neck fracture PROCEDURE: Lef posterior hip hemiarthroplasty SURGEON: Federico Padilla EXECUTIVE SEARCH CONSULTANT: Jenna Ram ANESTHESIA TYPE: Local By Surgeon, General LMA/ETT and Primary Nerve Block Refer to Anesthesia Record ESTIMATED BLOOD LOSS: 75 COMPLICATIONS: None Patient was transported to: PACU Patient's condition: stable Implants: DePuy Corail press fit femoral stem size 10 standard with 44 mm bipolar head +1.5 mm length Procedure Description: In the operating room, general and regional anesthesia were induced. The patient was transferred and positioned laterally on the operating room table. All bony prominences were well-padded. Preoperative antibiotics were administered as well as 1 g of TXA. The left hip was prepped and draped in the usual sterile fashion. The correct patient, procedure, and side of the procedure were all verified prior to incision. The posterior lateral approach to left hip was utilized. 20 cc of 0.25% bupivacaine containing epinephrine was infiltrated about the incision. Deeply, care was taken to protect the sciatic nerve. The short external rotators and capsule were reflected off the femoral neck and tagged for retraction and later repair. The femoral neck fracture was cut to an appropriate length and to match the desired implant. The femoral head was removed from the acetabulum and measured on the back table. All bony debris was removed from the wound. The proximal femoral canal was sequentially opened and broached with the appropriate lateralization and anteversion until there was a relatively solid fit. Trial reduction with a standard offset +1.5 mm length bipolar head demonstrated good suction seal and stability throughout physiologic range of motion. The trial implants were removed. The femoral stem was then impacted to the appropriate depth. The same bipolar head was trialed and found to have excellent stability throughout supra-physiologic range of motion including vulnerable positions. Length instability was preferred over instability given apparent high?fall risks. The hip was dislocated and the trial head was removed. The trunnion was dried, and the final femoral head was impacted, reduced into the acetabulum, and found to have excellent stability. The wound was copiously irrigated with Betadine and normal saline. 1 g of vancomycin powder was distributed mostly deep to the capsule with some superficial to the capsule about the wound. The short external rotators were repaired using SutureTape through bone tunnels in the greater trochanter. Distally, the IT band fascia was closed using #1 Vicryl in an interrupted fashion. Proximally, the gluteus doreen muscle fascia was closed using 0 Vicryl in a running fashion. The superficial wound was irrigated with normal saline. Subcutaneous tissue was closed using 2-0 Monocryl in a buried interrupted fashion. Skin was closed using 3-0 Monocryl in a buried subcuticular buried fashion. Skin was sealed with skin glue. A silver impregnated bandage was applied over the wound. The patient awoke from anesthesia without complication and was transferred to the recovery room in a stable condition.
--- NOTE | 2022-08-19 17:48 | W.PM.PROGNOT ---
Date of Service Date of service: 08/19/22 Time of Service: 17:48 Assessment and Plan Assessment and plan (1) Left displaced femoral neck fracture: Status: Acute Assessment and plan: 81-year-old female postop day #0 status post Left hip hemiarthroplasty Complete 24 hours postoperative antibiotics Discontinue Oswald catheter postop day #1 Pain control-Multimodal Physical therapy ordered: Weightbearing as tolerated with assist device May start chemical DVT prophylaxis tomorrow assuming hemodynamically stable: typically ASA 81mg BID x30 days Continue mechanical DVT prophylaxis with SCDs and/or TONY guerra Appreciate medical management Low threshold to get dedicated left knee or tib/fib x-rays if symptomatic that distracting injury is treated Subjective Subjective Interval history since last seen: Still waking up in PACU. Comfortable at rest. Voices discomfort about the hip with testing. Some treadwell discomfort but tolerable. Exam Narrative Exam Narrative: Left hip dressing clean, dry, and intact All compartments soft, minimal edema, no ecchymosis, no erythema Left knee bruising examined again more easily with hip now and patient and more normal position. Stable to gross testing, no crepitus, no deformity. 1+ left posterior tibial pulse Demonstrate intact motor foot and ankle Left leg slightly long compared to right, but offset is different, and positioning is somewhat challenging and oblique Objective Last Vital Signs Temp 99.5 F 08/19/22 06:32 Pulse 96 H 08/19/22 06:32 Resp 16 08/19/22 06:32 BP 116/64 08/19/22 06:32 Pulse Ox 94 08/19/22 06:32 Laboratory Results - last 24 hr 08/18/22 08/18/22 08/18/22 15:46 15:46 15:46 WBC RBC Hgb Hct MCV MCH MCHC RDW Plt Count MPV Immature Gran % Neutrophils % Lymphocytes % Monocytes % Eosinophils % Basophils % Nucleated RBC % Absolute Neutrophils Absolute Lymphocytes Absolute Monocytes Absolute Eosinophils Absolute Basophils Sodium Potassium Chloride Carbon Dioxide Anion Gap BUN Creatinine Est GFR (CKD-EPI 2020) Glucose Calcium Phosphorus Magnesium Total Bilirubin Conjugated Bilirubin GGT AST ALT Alkaline Phosphatase Lactate Dehydrogenase Creatine Kinase 351 H Total Protein Albumin Urine Color Urine Clarity Urine pH Ur Specific [place] Urine Protein Urine Ketones Urine Blood Urine Nitrite Urine Bilirubin Urine Urobilinogen Ur Leukocyte Esterase Urine Glucose Urine Opiates Screen Urine Methadone Screen Ur Barbiturates Screen Ur Tricyclics Screen Ur Amphetamines Screen U Benzodiazepines Scrn Urine Cocaine Screen Ur THC Screen Add-On Test Request DONE DONE 08/18/22 08/18/22 08/18/22 15:46 18:42 18:42 WBC RBC Hgb Hct MCV MCH MCHC RDW Plt Count MPV Immature Gran % Neutrophils % Lymphocytes % Monocytes % Eosinophils % Basophils % Nucleated RBC % Absolute Neutrophils Absolute Lymphocytes Absolute Monocytes Absolute Eosinophils Absolute Basophils Sodium Potassium Chloride Carbon Dioxide Anion Gap BUN Creatinine Est GFR (CKD-EPI 2020) Glucose Calcium Phosphorus Magnesium Total Bilirubin Conjugated Bilirubin GGT 21 AST ALT Alkaline Phosphatase Lactate Dehydrogenase Cancelled Creatine Kinase Total Protein Albumin Urine Color Yellow Urine Clarity Clear Urine pH 5.5 Ur Specific [place] 1.025 Urine Protein Negative Urine Ketones 15 H Urine Blood Negative Urine Nitrite Negative Urine Bilirubin Negative Urine Urobilinogen 0.2 Ur Leukocyte Esterase Negative Urine Glucose Negative Urine Opiates Screen Negative Urine Methadone Screen Negative Ur Barbiturates Screen Negative Ur Tricyclics Screen Negative Ur Amphetamines Screen Negative U Benzodiazepines Scrn Negative Urine Cocaine Screen Negative Ur THC Screen Negative Add-On Test Request 08/18/22 08/19/22 08/19/22 21:33 05:46 05:46 WBC 6.39 RBC 3.51 L Hgb 11.6 Hct 34.1 L MCV 97 H MCH 33.0 MCHC 34.0 RDW 13.9 Plt Count 329 MPV 8.9 Immature Gran % 0.3 Neutrophils % 58.4 Lymphocytes % 26.6 Monocytes % 13.9 Eosinophils % 0.3 Basophils % 0.5 Nucleated RBC % 0.0 Absolute Neutrophils 3.73 Absolute Lymphocytes 1.70 Absolute Monocytes 0.89 H Absolute Eosinophils 0.02 Absolute Basophils 0.03 Sodium 139 Potassium 3.5 Chloride 105 Carbon Dioxide 23.6 Anion Gap 10.4 BUN 16 Creatinine 0.7 Est GFR (CKD-EPI 2020) 87.37 Glucose 92 Calcium 8.7 Phosphorus Magnesium Total Bilirubin Conjugated Bilirubin GGT AST ALT Alkaline Phosphatase Lactate Dehydrogenase 233 Creatine Kinase Total Protein Albumin Urine Color Urine Clarity Urine pH Ur Specific [place] Urine Protein Urine Ketones Urine Blood Urine Nitrite Urine Bilirubin Urine Urobilinogen Ur Leukocyte Esterase Urine Glucose Urine Opiates Screen Urine Methadone Screen Ur Barbiturates Screen Ur Tricyclics Screen Ur Amphetamines Screen U Benzodiazepines Scrn Urine Cocaine Screen Ur THC Screen Add-On Test Request 08/19/22 05:46 WBC RBC Hgb Hct MCV MCH MCHC RDW Plt Count MPV Immature Gran % Neutrophils % Lymphocytes % Monocytes % Eosinophils % Basophils % Nucleated RBC % Absolute Neutrophils Absolute Lymphocytes Absolute Monocytes Absolute Eosinophils Absolute Basophils Sodium Potassium Chloride Carbon Dioxide Anion Gap BUN Creatinine Est GFR (CKD-EPI 2020) Glucose Calcium Phosphorus 3.4 Magnesium 1.8 Total Bilirubin 1.3 H Conjugated Bilirubin 0.3 H GGT AST 22 ALT 21 Alkaline Phosphatase 62 Lactate Dehydrogenase Creatine Kinase Total Protein 6.2 L Albumin 3.1 L Urine Color Urine Clarity Urine pH Ur Specific [place] Urine Protein Urine Ketones Urine Blood Urine Nitrite Urine Bilirubin Urine Urobilinogen Ur Leukocyte Esterase Urine Glucose Urine Opiates Screen Urine Methadone Screen Ur Barbiturates Screen Ur Tricyclics Screen Ur Amphetamines Screen U Benzodiazepines Scrn Urine Cocaine Screen Ur THC Screen Add-On Test Request PAWSS Have you Been Recently Intoxicated or Drunk Within the Last 30 days?: No Have you Ever Experienced Previous Episodes of Alcohol Withdrawal?: No Have you ever Experienced Withdrawal Seizures?: No Have you ever Experienced Delirium Tremens(DT)s?: No Have you ever undergone Alcohol Rehabilitation Treatment (i.e, inpt ot outpatient treatment programs)?: No Have you ever Experienced Blackouts?: No Have you ever Combined Alcohol with other Downers within the last 90 days?: No Have you ever Combined Alcohol with any other Substance of Abuse during the last 90 days?: No Positive Blood Alcohol level on Presentation? [PCS.BAL]: Yes Evidence of Increased Autonomic Activity (i.e. HR>120, tremor, sweating, agitation, nausea)?: No Result: 1 Time Spent with Patient Time Spent with Patient: <25 minutes Time was spent: preparing to see the patient(eg.review tests), obtaining and/or reviewing separately otacritical access hospital hiistory, ordering medications,tests, procedures, referring, communicating with other health critical care educator and counseling the patient
--- NOTE | 2022-08-19 18:02 | W.ANESPOSTOP ---
Postoperative Evaluation Date, Time and Location Date Performed: 08/19/22 Time Performed: 18:02 Patient Location: PACU Vital Signs Most Recent Imported Vital Signs: Most Recent Vital Signs Temp Pulse Resp BP Pulse Ox 36.7 C 76 16 139/71 96 08/19/22 17:57 08/19/22 17:57 08/19/22 17:57 08/19/22 17:57 08/19/22 17:57 Pain Score Most Recent Pain Score: Most Recent Pain Score Pain Level 5 08/19/22 18:04 Assessment Mental Status: Awake (Alert & Oriented to Patient Baseline) Airway and Respiratory Function: Patent airway with normal (patient baseline) respiratory exam Cardiovascular Function: Hemodynamically Stable Hydration Status: Adequately Hydrated Nausea & Vomiting: No Nausea or Vomiting Pain: Pain is tolerable per patient Peripheral Nerve Block: Regional nerve block not resolved at time of post operative discharge
[2022-08-19] MEDS: ceFAZolin 1 GM/50 ML BAG IVPB (19:47)
[2022-08-20] MEDS: ceFAZolin 1 GM/50 ML BAG IVPB ×2 (02:42→10:39)
[2022-08-20 02:44] VITALS: BP 138/74; PULSE 78; RESP 14; TEMP 37.2; O2SAT 93
[2022-08-20] MEDS: ACETAMINOPHEN 1,000 MG/100 ML BTL 400 MG IVPB (06:07)
[2022-08-20 06:20] VITALS: BP 120/66; PULSE 82; RESP 16; TEMP 36.9; O2SAT 93
[2022-08-20] MEDS: Lactated Ringers 1,000 ML 100 ML IV ×2 (06:26→17:32)
[2022-08-20] MEDS: Omeprazole 20 MG CAPCR PO (07:44)
[2022-08-20 08:10] LABS: Abs Immature Grans 0.03 10^3/uL (0.0-0.06); Absolute Basophil Count 0.01 10^3/uL (0.0-0.2); Absolute Lymphocyte Count 0.88 10^3/uL (1.2-3.4); Absolute Monocyte Count 0.76 10^3/uL (0.1-0.8); Absolute Neutrophil Count 7.32 10^3/uL (1.2-6.7); Basophils % 0.1; HCT 31.6 % (36.0-46.0); HGB 10.7 g/dL (11.2-15.7); Immature Grans % 0.3; Lymphocytes % 9.8; MCH 33.2 pg (27.0-33.0); MCHC 33.9 % (32.0-36.0); MCV 98 fL (80-95); MPV 8.8 fL (8.0-11.0); Monocytes % 8.4; Neutrophils % 81.4; Platelet Count 279 10^3/uL (130-400); RBC 3.22 10^6/uL (3.93-5.22); RDW 13.5 % (11.7-14.6); RDW-SD 49.1 fL
[2022-08-20 08:20] LABS: BUN 18 mg/dL (7-18); CREATININE 0.8 mg/dL (0.55-1.02); Calcium 8.6 mg/dL (8.5-10.1); Chloride 102 mmol/L (98-107); Estimated GFR 74.44 (mL/min/1.73m2); Glucose 133 mg/dL (74-106); Magnesium 1.7 mg/dL (1.8-2.4); Potassium 4.1 mmol/L (3.5-5.1); Sodium 137 mmol/L (136-145)
[2022-08-20] MEDS: Docusate Sodium 100 MG CAP PO ×2 (08:33→20:17)
[2022-08-20 08:56] VITALS: BP 124/73; PULSE 84; RESP 16; TEMP 37; O2SAT 95
[2022-08-20] MEDS: HYDROmorphone 2 MG/ML SYR 1 MG IVP ×3 (10:00→22:09)
--- NOTE | 2022-08-20 10:20 | PT.INIE ---
Date of service: 08/20/22 Time of Service: 09:37 PT Notes Visit Reasons: Left Subcapital Femur Fracture Physical Therapy Inpatient Initial Evaluation Date: 08/20/2022 Referring Doctor: Federico Padilla MD PT Orders: PT CONSULT: S/P Ortho Surgery. WBAT on the L LE with assist device Precautions: Posterior hip precautions in place per Dr. Padilla. WBAT on the L LE with AD. Zero visual acuity in B eyes. Patient Profile/Admitting Diagnosis: Patient is an 81-year-old female patient with displaced subcapital fracture of the L femoral neck sustained from a fall and is S/P L posterior hip hemiarthroplasty on postoperative day 1. 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 History of hemiarthroplasty of right hip (06/28/19) [facility] [place] Social History/Home Situation: Lives alone with her dog and her cat in a private home with a flight of steps to enter through her cellar. Patient has about a distance of 20 feet from her bed to the bathroom. Equipment Owned/DME: FWW, SPC SUBJECTIVE: Patient states that she has friends who can help her as needed. States that except for this recent fall, she has not fallen in the past 12 months. Reports 7/10 pain in the L hip at rest, 8-9/10 with movement and weight bearing. Denies headache, chest pain, and lightheadedness throughout session. OBJECTIVE: General Observation: Sipine in bed. Oswald catheter in place. IV through the L UE. Minimal swelling noted in the L thigh and leg. No TEDS on. Mental Status: Alert and oriented as to person, place, time, and purpose. Able to pay attention, focus, and respond appropriately. Pain: 6-7/10 at rest and 8-9/10 with movement and weight bearing Vital Signs: WNL as closley monitored by nursing staff ROM: Right Upper Extremity: Shoulder Flexion WFL. Shoulder abduction WFL. Elbow flexion WFL. Wrist flexion WFL. Functional opening and closing of hand WFL. Left Upper Extremity: Shoulder Flexion WFL. Shoulder abduction WFL. Elbow flexion WFL. Wrist flexion WFL. Functional opening and closing of hand WFL. Right Lower Extremity: Hip flexion WFL. Hip abduction WFL. Knee flexion WFL. Ankle dorsiflexion WFL. Ankle plantarflexion WFL. Left Lower Extremity: Able to move through 90 degrees of hip flexion without increase in pain. Hip abduction WFL. Knee flexion WFL. Ankle dorsiflexion WFL. Ankle plantarflexion WFL. Strength: Right Upper Extremity: Shoulder flexors 4/5. Shoulder abductors 4/5. Elbow flexors 4/5. Elbow extensors 4/5. Docket Clerk strong. Left Upper Extremity: Shoulder flexors 4/5. Shoulder abductors 4/5. Elbow flexors 4/5. Elbow extensors 4/5. Docket Clerk strong. Right Lower Extremity: Hip flexors 4/5. Hip abductors 4/5. Knee flexors 4/5. Knee extensors 4-/5. Ankle dorsiflexors 4-/5. Ankle plantarflexors 4-/5. Left Lower Extremity: Hip flexors 3-/5. Hip abductors 3+/5. Knee flexors 4-/5. Knee extensors 3/5. Ankle dorsiflexors 4-/5. Ankle plantarflexors 4-/5. Bed Mobility/Transfers: Supine to sit minimal assist to L LE Sit to stand minimal assist of 2 Stand to sit with contact guard assist of 2 Bed to reclining chair minimal assist of 2 Gait: Instructed patient with level surface ambulation of 3 steps forward, 2 sidesteps, and 2 step backs requiring contact guard assist of 2. Gait antalgic. Moderate verbal and tactile cues given for walker management, safe limb advancement, and directional changes to reduce fall risk. Step to gait pattern, step length asymmetrical. Mild shortneness breath resolved with rest. Balance: Static Sitting: Good Dynamic Sitting: Fair Static Standing: Fair Dynamic Standing: Poor Special Tests: Mobility Limitations Standardized Measure [facility] AM-PAC 6 clicks Basic Mobility Inpatient Short Form: Raw Score: 13 CMS Score: 65% deficit Informed Consent/Education: Patient was instructed in purpose of PT consult and plan of care. Agreeable to proceed with established PT POC to achieve personal goals. THERA EX: Facilitated safe performance of seated isometric and isotoninc exercises to maitain flexibility while minimizing pain report: Ankle pumps x 10 Quads sets with 5sh x 5 Gluteal sets with 5 sh x 5 ASSESSMENT: Patient presents functional mobility decline and functional impairments below due to pain and postoperative status. Ensure that pre-medication is done for pain for all PT sessions. May need short-term rehab to reduce fall risk at home. Patient presents with clinical signs and symptoms consistent with current/admitting diagnoses that have resulted to mobility limitations, gait instability, generalized weakness, and overall ADL decline as demonstrated by the following impairment level findings: 1. Decreased strength to R LE major muscle groups 2. Impaired sitting/standing balance 3. Impaired activity tolerance 4. Limitation of joint range of motion in R hip due to postoperative posterior hip precautions 5. Shortness of breath 6. Mild swelling in R LE Impairments are contributing to the following functional limitations: 1. Decline in bed mobility skills 2. Decline in transfer skills 3. Difficulty with ambulation without assistive device and physical assistance 4. Increased completion time for mobility ADL performance 5. Increased risk for falls 6. Difficulty with managing steps alone safely Patient is assessed as a 74235 moderate complexity based on the following: History: 81-year-old female with past medical history as indicated above Examination: Demonstrable impairment in strength, balance, and mobility level with underlying impairments and functional limitations as exhibited above as well as deficit score of 65% utilizing the [facility] Mobility Inpatient Short Form Presentation: Evolving Decision Makin moderate complexity Goals: Goals X1 week 1. Supine-Sit independent 2. Sit-Supine independent 3. Sit-Stand independent 4. Stand-Sit independent with FWW 5. Bed-Chair independent with FWW 6. Chair-Bed independent with FWW 7. Independent gait on level surface with use of FWW for at least 50 feet without report of pain nor dyspnea 8. Independent stair negotiation while holding onto 1 rail for at least 12 steps without report of pain nor dyspnea 9. Good static and dynamic standing balance/tolerance Plan of Care/Treatment Plan: 1-2x/day, 7 days/week x 1 week. Plan of care has been reviewed with the CONCRETE FINISHER providing the service under Physical Therapy direction. Initiate Physical Therapy intervention for pain management as needed, strengthening, bed mobility, transfers, gait, stairs, balance training, and use of assistive device. DISCHARGE RECOMMENDATIONS: [] Home with no services [] [] Home with services [specify] [] Home with outpatient PT [] [] SNF for continued rehabilitation [] [] Retirement Care [] [] SNF versus LTC based on ability to participate and progress [] [X] Short-term rehab vs. PT based on patient's ability to progress towards goals TREATMENT CODE/TIME: 72430 x 20 minutes, 90863 x 14 minutes beginning at 9:37 AM. Thank you for the opportunity to participate in the care of this patient. Macarena Oconnell PT, DPT, CLT [facility] [place], [place]
--- NOTE | 2022-08-20 11:00 | PGE_ITS ---
Date of Service Date of service: 08/20/22 Time of Service: 11:00 Assessment and Plan Assessment and plan (1) Left displaced femoral neck fracture: Status: Acute Assessment and plan: 81 year old female post-op day #1 status post left posterior hip hemiarthroplasty on 08/19/22. Complete 24 hours postoperative antibiotics Discontinue Oswald catheter postop day #1 unless needed by medical team to monitor ins and outs Pain control-Multimodal Physical therapy ordered: Weightbearing as tolerated with assist device. Posterior hip precautions for 6 weeks: Avoid deep hip flexion (past 90 degrees) with internal rotation and adduction. May start chemical DVT prophylaxis tomorrow assuming hemodynamically stable: typically ASA 81mg BID x30 days Continue mechanical DVT prophylaxis with SCDs and/or TONY jessee Follow-up outpatient [facility] orthopedics Dr. Padilla 2-3 weeks. My office will arrange this appointment. Appreciate medical management Subjective Subjective Interval history since last seen: Patient reports that she is much more comfortable today than she was yesterday before surgery. She reports some discomfort in the area of the incision. Denies any left knee discomfort. She reports that she got up and walked with PT using a walker with very little discomfort. She is hoping to go home soon to care for her cat and seeing eye dog. Denies any numbness or tingling. Exam Narrative Exam Narrative: Patient resting comfortably in recliner with feet elevated. Left hip dressing intact. Stable relatively comfortable ecchymosis over the anterior left knee. Demonstrates active ankle dorsiflexion and plantarflexion. Sensation intact to light touch in the left lower extremity. Sciatic nerve intact. Objective Last Vital Signs Temp 98.6 F 08/20/22 08:56 Pulse 84 08/20/22 08:56 Resp 16 08/20/22 08:56 BP 124/73 08/20/22 08:56 Pulse Ox 95 08/20/22 08:56 Laboratory Results - last 24 hr 08/20/22 08/20/22 08:01 08:01 WBC 9.00 RBC 3.22 L Hgb 10.7 L Hct 31.6 L MCV 98 H MCH 33.2 H MCHC 33.9 RDW 13.5 Plt Count 279 MPV 8.8 Immature Gran % 0.3 Neutrophils % 81.4 Lymphocytes % 9.8 Monocytes % 8.4 Eosinophils % 0.0 Basophils % 0.1 Nucleated RBC % 0.0 Absolute Neutrophils 7.32 H Absolute Lymphocytes 0.88 L Absolute Monocytes 0.76 Absolute Eosinophils 0.00 Absolute Basophils 0.01 Sodium 137 Potassium 4.1 Chloride 102 Carbon Dioxide 23.0 Anion Gap 12.0 H BUN 18 Creatinine 0.8 Est GFR (CKD-EPI 2020) 74.44 Glucose 133 H Calcium 8.6 Magnesium 1.7 L PAWSS Have you Been Recently Intoxicated or Drunk Within the Last 30 days?: No Have you Ever Experienced Previous Episodes of Alcohol Withdrawal?: No Have you ever Experienced Withdrawal Seizures?: No Have you ever Experienced Delirium Tremens(DT)s?: No Have you ever undergone Alcohol Rehabilitation Treatment (i.e, inpt ot outpatient treatment programs)?: No Have you ever Experienced Blackouts?: No Have you ever Combined Alcohol with other Downers within the last 90 days?: No Have you ever Combined Alcohol with any other Substance of Abuse during the last 90 days?: No Positive Blood Alcohol level on Presentation? [PCS.BAL]: Yes Evidence of Increased Autonomic Activity (i.e. HR>120, tremor, sweating, agitation, nausea)?: No Result: 1 Time Spent with Patient Time Spent with Patient: <25 minutes Time was spent: preparing to see the patient(eg.review tests), obtaining and/or reviewing separately otained hiistory, ordering medications,tests, procedures and referring, communicating with other health lawn care technician
--- NOTE | 2022-08-20 11:30 | W.PM.PROGNOT ---
Date of Service Date of service: 08/20/22 Time of Service: 11:30 Assessment and Plan Assessment and plan (1) Left displaced femoral neck fracture: Status: Acute Assessment and plan: 81-year-old female postop day #1 status post Left hip hemiarthroplasty will discontinue palacio catheter continue pain management, pain not well controlled today Physical therapy ordered: Weightbearing as tolerated with assist device chemical DVT prophylaxis: ASA 81mg BID x30 days Continue mechanical DVT prophylaxis with SCDs and/or TONY hose Low threshold to get dedicated left knee or tib/fib x-rays if symptomatic that distracting injury is treated discussed with DR Gutierrez Subjective Subjective Patient reports: still having pain, tolerating liquids well, tolerating a regular diet and afebrile; denies shortness of breath Exam Const General: cooperative, comfortable and no acute distress Nutritional Appearance: average body habitus Orientation: alert, awake and oriented x3 HENMT Head: normal to inspection, normocephalic and atraumatic Mouth: oral mucosae normal Chest Chest: normal inspection of the chest Resp Effort & Inspection: normal respiratory effort and able to speak in complete sentences Cardio Rate: regular rate Rhythm: regular rhythm GI Inspection: normal to inspection Palpation: soft General: other (palacio draining clear yellow urine) Skin Lesions: other (surgical dressing intact to left hip, no surrounding redness) Rashes: no rashes Neuro General: patient alert, patient awake and patient oriented x3 Cognition: normal cognition Motor: muscle tone normal throughout Objective Last Vital Signs Temp 37.0 C 08/20/22 08:56 Pulse 84 08/20/22 08:56 Resp 16 08/20/22 08:56 BP 124/73 08/20/22 08:56 Pulse Ox 95 08/20/22 08:56 Laboratory Results - last 24 hr 08/20/22 08/20/22 08:01 08:01 WBC 9.00 RBC 3.22 L Hgb 10.7 L Hct 31.6 L MCV 98 H MCH 33.2 H MCHC 33.9 RDW 13.5 Plt Count 279 MPV 8.8 Immature Gran % 0.3 Neutrophils % 81.4 Lymphocytes % 9.8 Monocytes % 8.4 Eosinophils % 0.0 Basophils % 0.1 Nucleated RBC % 0.0 Absolute Neutrophils 7.32 H Absolute Lymphocytes 0.88 L Absolute Monocytes 0.76 Absolute Eosinophils 0.00 Absolute Basophils 0.01 Sodium 137 Potassium 4.1 Chloride 102 Carbon Dioxide 23.0 Anion Gap 12.0 H BUN 18 Creatinine 0.8 Est GFR (CKD-EPI 2020) 74.44 Glucose 133 H Calcium 8.6 Magnesium 1.7 L PAWSS Have you Been Recently Intoxicated or Drunk Within the Last 30 days?: No Have you Ever Experienced Previous Episodes of Alcohol Withdrawal?: No Have you ever Experienced Withdrawal Seizures?: No Have you ever Experienced Delirium Tremens(DT)s?: No Have you ever undergone Alcohol Rehabilitation Treatment (i.e, inpt ot outpatient treatment programs)?: No Have you ever Experienced Blackouts?: No Have you ever Combined Alcohol with other Downers within the last 90 days?: No Have you ever Combined Alcohol with any other Substance of Abuse during the last 90 days?: No Positive Blood Alcohol level on Presentation? [PCS.BAL]: Yes Evidence of Increased Autonomic Activity (i.e. HR>120, tremor, sweating, agitation, nausea)?: No Result: 1 Time Spent with Patient Time Spent with Patient: 25-34 minutes Time was spent: preparing to see the patient(eg.review tests), obtaining and/or reviewing separately otained hiistory, ordering medications,tests, procedures, indepentently interpreting results and counseling the patient
[2022-08-20] MEDS: Acetaminophen 325 MG TAB 650 MG PO ×3 (12:17→20:16)
[2022-08-20] MEDS: Ketorolac 15 MG/ML VIAL IVP ×2 (12:30→17:32)
--- NOTE | 2022-08-20 14:30 | CHAPLAIN ---
Jazmine was up in the chair when I visited. She was very pleasant and easily engaged in a conversation. Jazmine has been blind since , according to Care Management notes. She uses a seeing eye dog. Her current one is her favorite one, she said, and she was worried about being here and not having anyone to look after her dog. She also has a cat. Care management helped Jazmine contact a friend who will take care of her cat and dog. Jazmine said she sometimes prefers animals to people and her motivation for getting home is to be with her cat and dog again. Although tripping over her dog is what brought her here. Jazmine said she is hoping that she doesn't have to go to rehab from here and before going home.
[2022-08-20 15:42] VITALS: BP 146/80; PULSE 82; RESP 16; TEMP 37.5; O2SAT 94
--- NOTE | 2022-08-20 15:42 | PT.INTREAT ---
PT Notes Visit Reasons: Left Subcapital Femur Fracture Inpatient Physical Therapy Treatment Note [facility] Date: 08/20/22 PRECAUTIONS: Posterior hip precautions in place per Dr. Padilla.? WBAT on the L LE with AD.? Zero visual acuity in B eyes. SUBJECTIVE: Patient reports pain is about the same as this morning, though much better than yesterday. Upon standing, patient reports pain is much reduced, it feels good to be moving. OBJECTIVE: PAIN: Patient reports pain is 6/10 BED MOBILITY/TRANSFERS Rolling L/R: standby Supine-sit: min assist Sit-supine: min assist Sit-stand: contact guard with elevated bed Stand-sit: contact guard with verbal cues and tactile guidance for safety Bed-Chair: contact guard with verbal cues and tactile guidance Chair-bed: contact guard with verbal cues and tactile guidance GAIT Assistive Device: front wheeled walker Weight bearing: as tolerated Assist: contact guard for balance, however patient is totally blind and in an unfamiliar environment, so moderate assistance with steering and verbal cues for safety. Distance: 200 feet Deviation: Patient demonstrates step through gait pattern with symmetrical stance phase, good foot clearance. Verbal cues to keep walker closer to body, verbal cues to slow stride pacing. THEREX: Reviewed hip precautions, HEP as assigned by PT this morning. Issued leg public relations coordinator and reviewed its use, further reinforcing hip precautions. STAIRS: Patient practiced step to as well as reciprocal stepping on stairs with bilateral railings, ascended and descended stairs x10. Therapist verbal cues for safe gait sequence on stairs, encouraged step-to pattern while recovering from surgery. Therapist verbal cues to rest as patient became visibly short of breath after 8 stairs. ASSESSMENT: Patient will benefit from continuing to work with physical therapy to facilitate strength, stability and balance. Patient reports she has a cane at home, cannot use walker due to visual impairments (fears she will wreck up the house.) Requires ability to do a full flight of stairs in order to return home (13 stairs to enter). PLAN: Continue physical therapy 1-2x a day for 1 week for strengthening, balance, gait, bed mobility, endurance. Emphasis on stairs and assistive device training. TREATMENT CODE/TIME: 19903 Therapeutic Activity 11 minutes, 43272 Gait Training 19 minutes
--- NOTE | 2022-08-20 16:04 | PHA.REVIEW2 ---
Pharmacy Admission Review - Admission Clinical Review (Last Reviewed 08/18/22 @ 22:12 by Merced Brooks MD) Left displaced femoral neck fracture (Acute 08/18/22) erythromycin base Adverse Reaction (Intermediate, Verified 12/19/20 13:08) GI upset Resuscitation Status Full Code Height 5 ft 6 in Weight 63.7 kg - Renal Dosing Renal Dosing: BUN 18 mg/dL (7-18) 08/20/22 08:01 Creatinine 0.8 mg/dL (0.55-1.02) 08/20/22 08:01 Medications needing adjustments: Reviewed (Crcl ~45 mL/min current meds okay) - Anticoagulation Anticoagulation: Hgb 10.7 g/dL (11.2-15.7) L 08/20/22 08:01 Hct 31.6 % (36.0-46.0) L 08/20/22 08:01 Plt Count 279 10^3/uL (130-400) 08/20/22 08:01 INR 1.0 (0.9-1.1) 08/18/22 15:46 Creatinine 0.8 mg/dL (0.55-1.02) 08/20/22 08:01 DVT Prophylaxis: Reviewed Medications: Aspirin (SCDs also ordered) Therapeutic Anticoagulation: N/A - Opiate Usage Evaluate Pain Scale/Pains Meds: Reviewed Scheduled Bowel Reg ordered if on Opiates?: Yes - Relevant Labs Sodium 137 mmol/L (136-145) 08/20/22 08:01 Potassium 4.1 mmol/L (3.5-5.1) 08/20/22 08:01 Chloride 102 mmol/L (98-107) 08/20/22 08:01 Phosphorus 3.4 mg/dL (2.6-4.7) 08/19/22 05:46 Magnesium 1.7 mg/dL (1.8-2.4) L 08/20/22 08:01 Electrolytes, C-Reactive P, ESR: Intervened (Mag a little low, nothing ordered yet, will ask provider about possible replacement) - DM Control DM Control: Glucose 133 mg/dL (74-106) H 08/20/22 08:01 DM Control: Reviewed (no DM noted in pt's medical history, previous A1c was from 2019 but was within normal limits) - Cardiac Review BP, HR, EF%: Reviewed (BP has been up and down some since admission) - Qtc Review QTc: Reviewed (QTc 464 on admission) - IV to PO Switch IV Medications: Intervened (Acetaminophen changed from IV to PO.) - Home Meds Home Med List reviewed: Reviewed (pseudoephedrine (PRN)) - Current meds Current Medication Order Review: Reviewed - Comments Comments/Follow Ups: Watch BP, SCr, mag, labs and for med changes (possible renal dose adjustments). Antibiotic Review - Pharmacy Antibiotic Review Pharmacy Antibiotic Activity: D/C antibiotic (post-op cefazolin finished this morning)
--- NOTE | 2022-08-20 16:12 | PDOC.CMPRO ---
- If Service Date Differs Date of service: 08/20/22 Time of Service: 16:12 Care Management Progress Note S/O: Jazmine was sitting up in her chair when CM met with her. She stated that she is having a lot of pain today, but is motivated to work with PT. She is not agreeable to SNF, and feels that she will do better at home with HH services. CM expressed her concerns with PT, who will be following her with a goal to return home, if she continues to improve. CM will continue to follow. A: George is an 81 year old female admitted to [facility] on 08/18/22 with left femur fx. P: Jazmine will likely be discharged home with new Home Health RN, PT and OT services when medically cleared by provider. She will follow up with her PCP, surgeon and plan of care as instructed. She will be transported home by a friend via private vehicle when ready. CM will continue to support Jazmine and any discharge planning needs.
[2022-08-20] MEDS: Magnesium Oxide 400 MG TAB PO (17:34)
[2022-08-20] MEDS: Normal Saline Flush 10 ML SYR IVP (17:34)
[2022-08-20] MEDS: Aspirin 81 MG CHEW PO (20:17)
[2022-08-20 22:15] VITALS: BP 144/77; PULSE 79; RESP 16; TEMP 37.1; O2SAT 94
[2022-08-21] MEDS: Ketorolac 15 MG/ML VIAL IVP ×5 (00:40→23:22)
[2022-08-21] MEDS: Normal Saline Flush 10 ML SYR IVP ×2 (00:40→23:21)
[2022-08-21] MEDS: Lactated Ringers 1,000 ML 100 ML IV ×3 (03:03→22:15)
[2022-08-21 07:00] LABS: Abs Immature Grans 0.02 10^3/uL (0.0-0.06); Absolute Basophil Count 0.02 10^3/uL (0.0-0.2); Absolute Eosinophil Count 0.01 10^3/uL (0.0-0.7); Absolute Lymphocyte Count 1.63 10^3/uL (1.2-3.4); Absolute Monocyte Count 0.91 10^3/uL (0.1-0.8); Absolute Neutrophil Count 5.44 10^3/uL (1.2-6.7); Basophils % 0.2; Eosinophils % 0.1; HCT 28.7 % (36.0-46.0); HGB 9.6 g/dL (11.2-15.7); Immature Grans % 0.2; Lymphocytes % 20.3; MCHC 33.4 % (32.0-36.0); MCV 99 fL (80-95); MPV 9.5 fL (8.0-11.0); Monocytes % 11.3; Neutrophils % 67.9; Platelet Count 275 10^3/uL (130-400); RBC 2.91 10^6/uL (3.93-5.22); RDW-SD 50.8 fL; WBC 8.03 10^3/uL (4.4-10.8)
[2022-08-21 07:25] LABS: Anion Gap 4.7 mmol/L (3-11); BUN 23 mg/dL (7-18); CO2 27.3 mmol/L (21.0-32.0); CREATININE 0.8 mg/dL (0.55-1.02); Calcium 8.7 mg/dL (8.5-10.1); Chloride 106 mmol/L (98-107); Estimated GFR 74.44 (mL/min/1.73m2); Glucose 119 mg/dL (74-106); Magnesium 1.9 mg/dL (1.8-2.4); Sodium 138 mmol/L (136-145)
[2022-08-21 07:27] VITALS: BP 123/72; PULSE 66; RESP 16; TEMP 36.8; O2SAT 96
[2022-08-21] MEDS: Aspirin 81 MG CHEW PO ×2 (08:53→20:43)
[2022-08-21] MEDS: oxyCODONE 5 MG TAB PO (08:53)
[2022-08-21] MEDS: Docusate Sodium 100 MG CAP PO ×2 (08:54→20:41)
[2022-08-21] MEDS: Acetaminophen 325 MG TAB 650 MG PO ×3 (08:54→20:42)
[2022-08-21] MEDS: Omeprazole 20 MG CAPCR PO (08:55)
[2022-08-21] MEDS: Polyethylene Glycol 3350 17 GM PACKET PO ×2 (09:01→20:40)
--- NOTE | 2022-08-21 09:28 | PT.INTREAT ---
Date of service: 08/21/22 Time of Service: 08:55 PT Notes Visit Reasons: Left Subcapital Femur Fracture Inpatient Physical Therapy Treatment Note [facility] Date: 08/21/2022 PRECAUTIONS: Posterior hip precautions in place per Dr. Padilla.? WBAT on the L LE with AD.? Zero visual acuity in B eyes. SUBJECTIVE: Stated she wants to go home to be with her seeing eye dog and cat. OBJECTIVE: PAIN: 5 out of 10 on 0-10 pain scale, was pre medicated prior to PT visit BED MOBILITY/TRANSFERS Up in recliner chair when I arrived to room today Sit-stand: independent Stand-sit: verbal cueing GAIT Assistive Device: FWW Weight bearing: WBAT on left LE Assist: CGA, due to guiding patient directionally because of visual acuity in bilateral eyes Distance: 200ft x 2 Deviation: Tends to walk fast, needed to be reminded to slow down due to visual impairment THEREX: Ankle pumps, LAQs, glut sets, quad sets and active hip abd/add in sitting STAIRS: Able to go up down 12 steps with 2 handrails, utilizing a step to gait pattern. Can perform reciprocal patterning also, but advise to continue with step to for now to avoid increase hip irritation. ASSESSMENT: Tolerated today's PT session very well. Eager to do all that is asked of her. Needs to be reminded to weight bear only as tolerated and to slow down due to visual acuity and not knowing her current surroundings. PLAN: Continue with PT's POC, with focus on improved ADL function. TREATMENT CODE/TIME: Ther Activities ([id number]), 8:55 to 9:20 am
--- NOTE | 2022-08-21 13:31 | PGE_ITS ---
Date of Service Date of service: 08/21/22 Time of Service: 13:31 Assessment and Plan Assessment and plan (1) Left displaced femoral neck fracture: Status: Acute Assessment and plan: 81-year-old female postop day #2 status post Left hip hemiarthroplasty continue pain management, pain is well controlled Physical therapy ordered: Weightbearing as tolerated with assist device chemical DVT prophylaxis: ASA 81mg BID x30 days Continue mechanical DVT prophylaxis with SCDs and/or TONY hose Home when stable with HH PT discussed with Dr Gutierrez Subjective Subjective Patient reports: no new complaints, pain is less, tolerating a regular diet, voiding w/o difficulty, bowel movement and afebrile; denies diarrhea, nausea or vomiting Interval history since last seen: She states she is doing well with PT and would like to go home with HH PT, she does not want to go to SNF. Exam Const General: cooperative, comfortable and no acute distress Nutritional Appearance: average body habitus Orientation: alert, awake and oriented x3 HENMT Head: normal to inspection, normocephalic and atraumatic Mouth: oral mucosae normal Chest Chest: normal inspection of the chest Resp Effort & Inspection: normal respiratory effort and able to speak in complete sentences Cardio Rate: regular rate Rhythm: regular rhythm GI Inspection: normal to inspection Palpation: soft General: other (palacio draining clear yellow urine) Skin Lesions: other (surgical dressing intact to left hip, no surrounding redness) Rashes: no rashes Neuro General: patient alert, patient awake and patient oriented x3 Cognition: normal cognition Motor: muscle tone normal throughout Objective Last Vital Signs Temp 36.8 C 08/21/22 07:27 Pulse 66 08/21/22 07:27 Resp 16 08/21/22 07:27 BP 123/72 08/21/22 07:27 Pulse Ox 96 08/21/22 07:27 Laboratory Results - last 24 hr 08/21/22 08/21/22 06:03 06:03 WBC 8.03 RBC 2.91 L Hgb 9.6 L Hct 28.7 L MCV 99 H MCH 33.0 MCHC 33.4 RDW 14.0 Plt Count 275 MPV 9.5 Immature Gran % 0.2 Neutrophils % 67.9 Lymphocytes % 20.3 Monocytes % 11.3 Eosinophils % 0.1 Basophils % 0.2 Nucleated RBC % 0.0 Absolute Neutrophils 5.44 Absolute Lymphocytes 1.63 Absolute Monocytes 0.91 H Absolute Eosinophils 0.01 Absolute Basophils 0.02 Sodium 138 Potassium 4.0 Chloride 106 Carbon Dioxide 27.3 Anion Gap 4.7 BUN 23 H Creatinine 0.8 Est GFR (CKD-EPI 2020) 74.44 Glucose 119 H Calcium 8.7 Magnesium 1.9 PAWSS Have you Been Recently Intoxicated or Drunk Within the Last 30 days?: No Have you Ever Experienced Previous Episodes of Alcohol Withdrawal?: No Have you ever Experienced Withdrawal Seizures?: No Have you ever Experienced Delirium Tremens(DT)s?: No Have you ever undergone Alcohol Rehabilitation Treatment (i.e, inpt ot outpatient treatment programs)?: No Have you ever Experienced Blackouts?: No Have you ever Combined Alcohol with other Downers within the last 90 days?: No Have you ever Combined Alcohol with any other Substance of Abuse during the last 90 days?: No Positive Blood Alcohol level on Presentation? [PCS.BAL]: Yes Evidence of Increased Autonomic Activity (i.e. HR>120, tremor, sweating, agitation, nausea)?: No Result: 1 Time Spent with Patient Time Spent with Patient: <25 minutes Time was spent: preparing to see the patient(eg.review tests), ordering medications,tests, procedures, referring, communicating with other health healthcare business analyst, indepentently interpreting results, counseling the patient and care coordination
[2022-08-21 14:31] VITALS: BP 111/71; PULSE 65; RESP 17; TEMP 37.5; O2SAT 94
[2022-08-21 19:20] VITALS: BP 178/92; PULSE 75; RESP 16; TEMP 37; O2SAT 98
[2022-08-22 03:19] VITALS: BP 137/87; PULSE 69; RESP 16; TEMP 36.6; O2SAT 96
[2022-08-22] MEDS: Ketorolac 15 MG/ML VIAL IVP ×4 (05:32→23:56)
[2022-08-22 06:27] VITALS: BP 155/72; PULSE 68; RESP 16; TEMP 36.4; O2SAT 97
[2022-08-22 06:33] LABS: Abs Immature Grans 0.03 10^3/uL (0.0-0.06); Absolute Basophil Count 0.04 10^3/uL (0.0-0.2); Absolute Eosinophil Count 0.56 10^3/uL (0.0-0.7); Absolute Lymphocyte Count 2.92 10^3/uL (1.2-3.4); Absolute Monocyte Count 0.74 10^3/uL (0.1-0.8); Absolute Neutrophil Count 3.73 10^3/uL (1.2-6.7); Basophils % 0.5; HCT 27.9 % (36.0-46.0); HGB 9.1 g/dL (11.2-15.7); Immature Grans % 0.4; Lymphocytes % 36.4; MCH 32.3 pg (27.0-33.0); MCHC 32.6 % (32.0-36.0); MCV 99 fL (80-95); MPV 9.2 fL (8.0-11.0); Monocytes % 9.2; Neutrophils % 46.5; Platelet Count 285 10^3/uL (130-400); RBC 2.82 10^6/uL (3.93-5.22); RDW 13.9 % (11.7-14.6); RDW-SD 50.7 fL; WBC 8.02 10^3/uL (4.4-10.8)
[2022-08-22 06:51] LABS: Anion Gap 6.2 mmol/L (3-11); BUN 14 mg/dL (7-18); CO2 26.8 mmol/L (21.0-32.0); CREATININE 0.7 mg/dL (0.55-1.02); Calcium 8.5 mg/dL (8.5-10.1); Chloride 109 mmol/L (98-107); Estimated GFR 87.37 (mL/min/1.73m2); Glucose 96 mg/dL (74-106); Magnesium 1.6 mg/dL (1.8-2.4); Potassium 3.6 mmol/L (3.5-5.1); Sodium 142 mmol/L (136-145)
[2022-08-22] MEDS: Docusate Sodium 100 MG CAP PO ×2 (08:57→21:08)
[2022-08-22] MEDS: Acetaminophen 325 MG TAB 650 MG PO ×3 (08:57→21:07)
[2022-08-22] MEDS: Aspirin 81 MG CHEW PO ×2 (08:58→21:08)
[2022-08-22] MEDS: Omeprazole 20 MG CAPCR PO (08:58)
[2022-08-22] MEDS: MAGNESIUM SULFATE 2 GM/50 ML BAG IVPB (08:59)
[2022-08-22] MEDS: Polyethylene Glycol 3350 17 GM PACKET PO (08:59)
[2022-08-22] MEDS: oxyCODONE 5 MG TAB PO (09:13)
--- NOTE | 2022-08-22 12:25 | PT.INTREAT ---
Date of service: 08/22/22 Time of Service: 09:30 PT Notes Visit Reasons: Left Subcapital Femur Fracture Inpatient Physical Therapy Treatment Note [facility] Date: 08/22/2022 PRECAUTIONS:?Posterior hip precautions in place per Dr. Padilla.? WBAT on the L LE with AD.? Zero visual acuity in B eyes. SUBJECTIVE: Needs to remember not to cross her legs. Is concerned with the fact that she generally keeps her seeing eye dog to the left of her when walking. I asked if having a session or two to work on this could be possible, but she indicated that her dog Rosemarie is not good with have people around when they are walking together, so she did not feel this would work out well. Will make supervising PT, Mita, aware of this concern. OBJECTIVE: ? PAIN: Was a 2 out of 10 on 0-10 pain scale this morning prior to trying to reach for something that fell down off the left side of bed. Was able to retrieve the idem but strained her left thigh a little when reaching. Not too bad when I arrived to her room despite this. Doing better than yesterday. ? BED MOBILITY/TRANSFERS Supine - Sit: I? Sit - supine - I ? Sit-stand: SBA and verbal cueing for hand placement ? Stand-sit: SBA and verbal cueing for hand placement ? GAIT? Assistive Device: FWW? Weight bearing: WBAT on left LE Assist: CGA, due to guiding patient directionally because of visual acuity in bilateral eyes ? Distance:? 300ft x 2 ? Deviation: Tends to walk fast, needed to be reminded to slow down due to visual impairment. But, was better about this today. ? THEREX: Ankle pumps, LAQs, glut sets and active hip abd/add in sitting for 10 reps x 2 sets each. Perform chair push ups, shoulder flexion to approximately 90 and horizontal shoulder abd/add for 10 reps each. ? STAIRS: Able to go up/ down 12 4 inch steps and 8 6 inch steps with 1 handrails, utilizing a step to gait pattern. Can perform reciprocal patterning also, but advise to continue with step to for now to avoid increase hip irritation. ? ASSESSMENT:? Tolerated today's PT session very well. Indicated she tends to be an over achiever due to having to fend for herself. Did much better with slowing down with ambulation for safety today. PLAN: Continue with PT's POC, with focus on improved ADL function. TREATMENT CODE/TIME: Ther Activities ([id number]), 9:30 to 10:05 am (35')
[2022-08-22 15:15] VITALS: BP 144/72; PULSE 77; RESP 16; TEMP 37.3; O2SAT 93
--- NOTE | 2022-08-22 19:16 | W.PM.PROGNOT ---
Date of Service Date of service: 08/22/22 Time of Service: 13:00 Assessment and Plan Assessment and plan (1) Left displaced femoral neck fracture: Status: Acute Assessment and plan: 81-year-old female postop day #3 status post Left hip hemiarthroplasty continue pain management, pain is well controlled Physical therapy ordered: Weightbearing as tolerated with assist device chemical DVT prophylaxis: ASA 81mg BID x30 days Continue mechanical DVT prophylaxis with SCDs and/or TONY hose Home when stable with PT discussed with Dr Gutierrez Subjective Subjective Patient reports: no new complaints, pain is less, tolerating liquids well, tolerating a regular diet, voiding w/o difficulty, bowel movement and afebrile; denies diarrhea, nausea, vomiting or shortness of breath Interval history since last seen: She feels she is improving, continues to work with PT; pain is tolerable and better every day Exam Const General: cooperative, comfortable and no acute distress Nutritional Appearance: average body habitus Orientation: alert, awake and oriented x3 HENMT Head: normal to inspection, normocephalic and atraumatic Mouth: oral mucosae normal Chest Chest: normal inspection of the chest Resp Effort & Inspection: normal respiratory effort and able to speak in complete sentences Cardio Rate: regular rate Rhythm: regular rhythm GI Inspection: normal to inspection Palpation: soft General: other (palacio draining clear yellow urine) Skin Lesions: other (surgical dressing intact to left hip, no surrounding redness) Rashes: no rashes Neuro General: patient alert, patient awake and patient oriented x3 Cognition: normal cognition Motor: muscle tone normal throughout Objective Last Vital Signs Temp 37.3 C 08/22/22 15:15 Pulse 77 08/22/22 15:15 Resp 16 08/22/22 15:15 BP 144/72 H 08/22/22 15:15 Pulse Ox 93 08/22/22 15:15 Laboratory Results - last 24 hr 08/22/22 08/22/22 06:08 06:08 WBC 8.02 RBC 2.82 L Hgb 9.1 L Hct 27.9 L MCV 99 H MCH 32.3 MCHC 32.6 RDW 13.9 Plt Count 285 MPV 9.2 Immature Gran % 0.4 Neutrophils % 46.5 Lymphocytes % 36.4 Monocytes % 9.2 Eosinophils % 7.0 Basophils % 0.5 Nucleated RBC % 0.0 Absolute Neutrophils 3.73 Absolute Lymphocytes 2.92 Absolute Monocytes 0.74 Absolute Eosinophils 0.56 Absolute Basophils 0.04 Sodium 142 Potassium 3.6 Chloride 109 H Carbon Dioxide 26.8 Anion Gap 6.2 BUN 14 Creatinine 0.7 Est GFR (CKD-EPI 2020) 87.37 Glucose 96 Calcium 8.5 Magnesium 1.6 L PAWSS Have you Been Recently Intoxicated or Drunk Within the Last 30 days?: No Have you Ever Experienced Previous Episodes of Alcohol Withdrawal?: No Have you ever Experienced Withdrawal Seizures?: No Have you ever Experienced Delirium Tremens(DT)s?: No Have you ever undergone Alcohol Rehabilitation Treatment (i.e, inpt ot outpatient treatment programs)?: No Have you ever Experienced Blackouts?: No Have you ever Combined Alcohol with other Downers within the last 90 days?: No Have you ever Combined Alcohol with any other Substance of Abuse during the last 90 days?: No Positive Blood Alcohol level on Presentation? [PCS.BAL]: Yes Evidence of Increased Autonomic Activity (i.e. HR>120, tremor, sweating, agitation, nausea)?: No Result: 1 Time Spent with Patient Time Spent with Patient: 25-34 minutes Time was spent: preparing to see the patient(eg.review tests), ordering medications,tests, procedures, referring, communicating with other health physician primary care sports medicine, indepentently interpreting results, counseling the patient and care coordination
[2022-08-22 23:52] VITALS: BP 147/74; PULSE 76; RESP 15; TEMP 36.8; O2SAT 95
[2022-08-22] MEDS: Normal Saline Flush 10 ML SYR IVP (23:56)
[2022-08-23] MEDS: Ketorolac 15 MG/ML VIAL IVP ×2 (06:30→11:13)
[2022-08-23] MEDS: Normal Saline Flush 10 ML SYR IVP (06:30)
[2022-08-23 06:37] LABS: Abs Immature Grans 0.02 10^3/uL (0.0-0.06); Absolute Basophil Count 0.04 10^3/uL (0.0-0.2); Absolute Eosinophil Count 0.92 10^3/uL (0.0-0.7); Absolute Lymphocyte Count 2.49 10^3/uL (1.2-3.4); Absolute Monocyte Count 0.66 10^3/uL (0.1-0.8); Absolute Neutrophil Count 2.97 10^3/uL (1.2-6.7); Basophils % 0.6; HCT 30.1 % (36.0-46.0); HGB 9.8 g/dL (11.2-15.7); Immature Grans % 0.3; Lymphocytes % 35.1; MCH 32.7 pg (27.0-33.0); MCHC 32.6 % (32.0-36.0); MCV 100 fL (80-95); MPV 9.1 fL (8.0-11.0); Monocytes % 9.3; Neutrophils % 41.7; Platelet Count 321 10^3/uL (130-400); RDW 13.9 % (11.7-14.6)
[2022-08-23 06:50] LABS: Anion Gap 10.5 mmol/L (3-11); BUN 10 mg/dL (7-18); CO2 26.5 mmol/L (21.0-32.0); CREATININE 0.7 mg/dL (0.55-1.02); Calcium 8.6 mg/dL (8.5-10.1); Chloride 106 mmol/L (98-107); Estimated GFR 87.37 (mL/min/1.73m2); Glucose 100 mg/dL (74-106); Magnesium 1.9 mg/dL (1.8-2.4); Potassium 3.5 mmol/L (3.5-5.1); Sodium 143 mmol/L (136-145)
[2022-08-23 08:00] VITALS: BP 142/78; PULSE 93; RESP 18; TEMP 37.2; O2SAT 93
[2022-08-23] MEDS: Aspirin 81 MG CHEW PO (08:59)
[2022-08-23] MEDS: oxyCODONE 5 MG TAB PO (09:00)
[2022-08-23] MEDS: Omeprazole 20 MG CAPCR PO (09:00)
[2022-08-23] MEDS: Docusate Sodium 100 MG CAP PO (09:00)
[2022-08-23] MEDS: Acetaminophen 325 MG TAB 650 MG PO ×2 (09:00→11:13)
--- NOTE | 2022-08-23 10:06 | W.PM.DS.N ---
Date of service: 08/23/22 Time of Service: 10:06 DS: Diagnosis Discharge Diagnosis (1) Left displaced femoral neck fracture: Status: Acute Discharge Plan Disposition Patient Disposition: Home W/Home Health Services Condition: Improving Discharge Details Reason For Visit: Left Subcapital Femur Fracture Admit Date/Time: 08/18/22 17:38 Admit Provider: Waldo Mckay Attending Provider: Waldo Mckay Primary Care Provider: Amadeo Bernal Hospital Course Hospital Course: This is an 81 yr old female with past medical history of blindness since who lives alone with her Seeing Eye dog. On 08/18/2022 she was feeding her dog when she tripped and landed on her left side. She could not get up and crawled around on the floor until she was able to pull the phone assistant technician to her and call EMS. She had a couple of shots of whiskey to kill the pain denied daily consumption of alcohol, although her blood alcohol level was checked and found to be 172 mg/dL. X-ray of her pelvis revealed a comminuted subcapital fracture of the left femoral neck. She also has a right hip prosthesis which [place] [facility] [place] She is otherwise generally healthy. She is not and does not have any children or family members in the area.? On 08/19/2022 she was brought to the OR for an uneventful, successful hemiarthroplasty of the left hip.? She has been working with PT and advancing as expected and doing well enough to go home with Home Health PT.? She is able to go up and down 12 4 inch steps and 8 6 inch step with one handrail. She does need to be reminded to slow down and take her time, she is very independent. She declined SNF. She is being discharged, stable, to home with aspirin 81 mg twice a day for 30 days and oxycodone as needed for pain not relieved by acetaminophen. She will follow up with orthopedics in 2-[address] Gutierrez Home Meds and New Rx's Prescriptions: New docusate sodium [Colace] 100 mg Capsule 100 mg PO BID Qty: 0 0RF oxycodone 5 mg Tablet 5 mg PO Q6H PRN PRNQty: 20 0RF aspirin 81 mg capsule 81 mg PO BID Qty: 60 0RF Continued omeprazole 20 mg capsule,delayed release(DR/EC) 20 mg PO DAILY Qty: 90 4RF pseudoephedrine HCl [Sudafed] 30 mg tablet 30 mg PO ONCE PRN No Action aspirin [Adult Aspirin Regimen] 81 mg tablet,delayed release (DR/EC) 81 mg PO DAILY Discharge Instructions Instructions: Acetaminophen (By mouth), Aspirin (By mouth), Oxycodone, Rapid Release (By mouth), Hip Fracture (GEN) Additional Instructions: Posterior hip precautions for 6 weeks: Avoid deep hip flexion (past 90 degrees) with internal rotation and adduction. Take Aspirin 81 mg twice a day for 30 days for blood clot prevention. Take tylenol for pain, oxycodone as needed for moderate to severe pain. Home Health physical therapy will call you to make an appointment to come to your home to do an evaluation and recommend treatment. Referrals: Amadeo Bernal NP [Primary Care Provider] - (Follow up in 1-2 weeks) Federico Padilla MD [ [facility] STAFF PHYSICIAN] - (follow up in 2-3 weeks ) Activity:: Activity as Tolerated Equipment/Supplies:: Walker Diet:: As Tolerated Discharge Orders Discharge Orders: Discharge Order (Routine); Ordered 08/23/22 Ordered By: Binta Sanderson DS: Summary Time Spent with Patient providing and/or coordinating discharge services: Greater than 30 minutes Status at Discharge Functional status at discharge: uses cane/walker Overall status at discharge: patient is progressing back to baseline Mental Status: mental status grossly normal Speech and Movement: speech and movement normal Mood: congruent mood Affect: normal affect Exam Const General: cooperative, comfortable and no acute distress Nutritional Appearance: average body habitus Orientation: alert, awake and oriented x3 HENMT Head: normal to inspection, normocephalic and atraumatic Mouth: oral mucosae normal Chest Chest: normal inspection of the chest Resp Effort & Inspection: normal respiratory effort and able to speak in complete sentences Cardio Rate: regular rate Rhythm: regular rhythm GI Inspection: normal to inspection Palpation: soft General: other (palacio draining clear yellow urine) Skin Lesions: other (surgical dressing intact to left hip, no surrounding redness) Rashes: no rashes Neuro General: patient alert, patient awake and patient oriented x3 Cognition: normal cognition Motor: muscle tone normal throughout Psych Mental Status: mental status grossly normal Speech and Movement: speech and movement normal Mood: congruent mood Affect: normal affect DS: Data Vitals/I&O Vitals and I&O: Vital Signs Temperature 36.8 C 08/22/22 23:52 Temperature Source Tympanic 08/22/22 23:52 Pulse 76 08/22/22 23:52 Pulse Rhythm Regular 08/23/22 04:30 Pulse 90 08/18/22 18:20 Respiratory Rate 15 08/22/22 23:52 Respiratory Effort Normal, Non-Labored 08/23/22 04:30 Respiratory Depth Normal 08/23/22 04:30 Respiratory Pattern Normal 08/23/22 04:30 Blood Pressure 147/74 H 08/22/22 23:52 Blood Pressure Mean 126 08/18/22 18:15 Blood Pressure Position Supine 08/18/22 15:19 Pulse Oximetry 95 08/22/22 23:52 Respiratory End-tidal CO2 25 08/19/22 18:26 Oxygen Delivery Method Room Air 08/22/22 23:52 Oxygen Flow Rate 0 08/22/22 23:52 Pain Level 7 08/23/22 09:00 Intake & Output 08/22/22 08/22/22 08/23/22 11:59 23:59 11:59 Intake Total 1000 / 1310 290 / 1310 20 / 20 Output Total 550 / 4350 3800 / 4350 900 / 900 Balance 450 / -3040 -3510 / -3040 -880 / -880 Intake: IV 1000 / 1070 50 / 1070 20 / 20 Oral 240 / 240 Output: Urine 550 / 4350 3800 / 4350 900 / 900 Other: Urine Color Yellow Yellow Yellow Urine Appearance Clear Clear Clear Urine Odor Normal Normal Comment Patient has been getting out of bed to use the commode to void. mixed with stool at toliet paper Stool Size Copious Moderate Stool Characteristics Formed Soft Brown Brown Voiding Methods Bedside Commode Bedside Commode Bedside Commode Data Completed and Pending Labs on day of discharge: Labs from last 24 hours 08/23/22 08/23/22 06:06 06:06 WBC 7.10 RBC 3.00 L Hgb 9.8 L Hct 30.1 L MCV 100 H MCH 32.7 MCHC 32.6 RDW 13.9 Plt Count 321 MPV 9.1 Immature Gran % 0.3 Neutrophils % 41.7 Lymphocytes % 35.1 Monocytes % 9.3 Eosinophils % 13.0 Basophils % 0.6 Nucleated RBC % 0.0 Absolute Neutrophils 2.97 Absolute Lymphocytes 2.49 Absolute Monocytes 0.66 Absolute Eosinophils 0.92 H Absolute Basophils 0.04 Sodium 143 Potassium 3.5 Chloride 106 Carbon Dioxide 26.5 Anion Gap 10.5 BUN 10 Creatinine 0.7 Est GFR (CKD-EPI 2020) 87.37 Glucose 100 Calcium 8.6 Magnesium 1.9 PFSH All Active Problems (Updated 08/20/22 @ 11:07 by BRITT Lucio) Tinnitus (Acute 04/07/15) Eczema (Acute 04/07/15) Left displaced femoral neck fracture (Acute 08/18/22) Left posterior hip hemiarthroplasty 08/19/22 Skin mole (Acute) Muscle spasms of neck (Acute) Hip pain, right (Acute) Seborrheic dermatitis (Acute) Eczema of both external ears (Acute) Blindness (Acute) Duodenitis determined by biopsy (Acute) Dysphagia (Acute) Agee's esophagus (Acute) Medical History 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 History of hemiarthroplasty of right hip (06/28/19[place] [facility] [place] Family History Mother , age 63 No problems noted. Father , age 70 Cancer LIVER CANCER Brother , age 45 No problems noted. Other Hypertension Social History Smoking/Tobacco Use Status: Never Second Hand Exposure: Yes Smoking risk assessment performed?: Yes Alcohol Intake: current Alcohol Intake frequency: a few times a week Alcohol type: beer, wine and hard liquor Drug use: Never Caregiver/Support person: No Household members: none Housing: house Communication Needs: Blind Do you need help understanding health information?: Rarely Pets and animals: Yes (seeing eye dog) Pets and animals: cat(s) and dog(s) Sexually active: No Do you think of yourself as: straight/heterosexual Current gender identity: female What is your relationship status?: never How often do you talk on the phone with friends or family?: three or more times per week How often do you get together with friends or relatives?: never How often do you attend amish or restorationist services?: decline to answer Do you belong to any clubs or organized social groups?: no Panel score (0-1 are the most socially isolated patients): 1 What type of physical activity do you participate in: walking and other Details: horseback riding Duration: < 15 minutes/day Frequency: 1-2 times per week Jie/Nondenominational: Confucianism Special jie needs: No Seatbelt use: sometimes Helmet use: Yes Drive intox or ride w/intox helper driver: No Do you feel safe at home: Yes Additional Social history: lives alone Time Spent with Patient Time Spent with Patient: 45-69 minutes Time was spent: preparing to see the patient(eg.review tests), ordering medications,tests, procedures, referring, communicating with other health career advisor, indepentently interpreting results, counseling the patient and care coordination
--- NOTE | 2022-08-23 10:25 | PDOC.HHF2F_ITS ---
Home Health Referral Home Health Orders Clinical synopsis of why skilled professionals are needed: This is an 81 yr old female with past medical history of blindness since who lives alone with her Seeing Eye dog. On 08/18/2022 she was feeding her dog when she tripped and landed on her left side. She could not get up and crawled around on the floor until she was able to pull the phone regional director to her and call EMS. She had a couple of shots of whiskey to kill the pain denied daily consumption of alcohol, although her blood alcohol level was checked and found to be 172 mg/dL. X-ray of her pelvis revealed a comminuted subcapital fracture of the left femoral neck. She also has a right [place] [facility] [place] She is otherwise generally healthy. She is not and does not have any children or family members in the area.? On 08/19/2022 she was brought to the OR for an uneventful, successful hemiarthroplasty of the left hip.? She has been working with PT and advancing as expected and doing well enough to go home with Home Health PT.? She is able to go up and down 12 4 inch steps and 8 6 inch step with one handrail. She does need to be reminded to slow down and take her time, she is very independent. She declined SNF. She is being discharged, stable, to home with aspirin 81 mg twice a day for 30 days and oxycodone as needed for pain not relieved by acetaminophen. She will follow up with orthopedics in 2-3 weeks. Medical diagnosis necessitation home health referral: Fractured left hip with hemiarthoplasty Physical Therapist: Check all that apply Increase strength & endurance for safe mobility at home: Ordered To design/establish home maintenance program: Ordered Fall reduction therapy program for patient with history of frequent falls: Ordered Home safety evaluation and teaching/gait training including stair management (if applicable): Ordered Occupational Therapist: Evaluate and treat for patient unable to perform ADL/IADL/self-care: Ordered Upper extremity strengthening, range and motion: Ordered Supervisor Pairing And Inspecting: Assist with community resources: Ordered Assist with termite inspector care planning: Ordered Home Bound Status Requires the aid of supportive device (check all that apply): Walker Assistance of another person (Describe assistance and medical necessity): Blind Patient has a condition such that leaving home is medically contraindicated (Describe): Blind and new hemiarthroplasty left hip Describe why leaving home would require a considerable and taxing effort: Safety Concerns: describe Encounter Date and Reason: I certify that a FTF encounter for this patient was performed on August 23, 2022 and that such encounter was related to the primary reason the patient requires home health services. The encounter was conducted in the following manner: * By me as the certifying physician, WIND DEVELOPMENT DIRECTOR, PA or * By an inpatient physician, WIND DEVELOPMENT DIRECTOR or PA during an inpatient stay who communicated findings to me, Certification And Authentication I certify that I composed the above information based on my clinical judgment relating to this patient's medical condition and, if applicable, clinical findings communicated to me by the NPP or inpatient physician who performed the FTF encounter. Name of Provider that will be monitoring home health services: Amadeo Melvin
--- NOTE | 2022-08-23 10:55 | PT.INTREAT ---
Date of service: 08/23/22 Time of Service: 10:30 PT Notes Visit Reasons: Left Subcapital Femur Fracture Inpatient Physical Therapy Treatment Note [facility] Date: 08/23/22 PRECAUTIONS:[] SUBJECTIVE: Patient reports feeling much better, although very bored. Eager to return home. Does not want to go to rehabilitation facility. OBJECTIVE: PAIN: none reported BED MOBILITY/TRANSFERS Rolling L/R: Independent Supine-sit: Independent Sit-supine: Independent Sit-stand: Independent Stand-sit: Independent Bed-Chair: Supervision (patient will likely be fine in her own, familiar environment. Being visually impaired, she is uncertain of her movements in unfamiliar setting.) Chair-bed: Supervision (patient will likely be fine in her own, familiar environment. Being visually impaired, she is uncertain of her movements in unfamiliar setting.) GAIT Assistive Device: single point cane Weight bearing: as tolerated Assist: handhold assist for steering as well as CGA with gait belt Distance: 200 feet Deviation: Patient demonstrates shortened stride length with step-to pattern right to left. Educated patient on using cane in hand opposite injured side. Patient reports feeling less balanced, but reports her seeing eye dog walks on the left so it's more convenient for her to use the cane in the right hand anyway. Verbal cues for gait sequence with assistive device. Patient also ambulates within her room, stands and walks cautiously without assistive device in spite of therapist verbal cues to use device. EDUCATION: Reviewed HEP, hip precautions with patient. Explained how to pick items up from floor, explained caution especially when getting low to groom seeing eye dog. Patient verbalized understanding. ASSESSMENT: Tolerated today's session very well. Reminded patient not to over exert herself on returning home. PLAN: Patient expected to discharge to home early this afternoon, home health PT scheduled. TREATMENT CODE/TIME: 66874 TherAct 10, 72229 Gait 13
--- NOTE | 2022-08-23 11:34 | NUR.NOTE ---
Patient has been DC & is waiting on her ride to pick her up. All of her DC instructions have been reviewed, signed & all questions &/or concerns have been addressed. PIV to RAC has been removed. Will continue to monitor till she has left the unit. Nursing Note:
--- NOTE | 2022-08-23 12:53 | NUR.NOTE ---
1240 Patient was taken off the unit with her friend & taken to her friends car via wheelchair. All questions & concerns were addressed. All of patients belongings were taken with her upon DC. Nursing Note:
--- NOTE | 2022-08-23 15:11 | PDOC.CMDIS ---
- If Service Date Differs Date of service: 08/23/22 Time of Service: 15:11 LACE Index Scoring Tool - Questions: Length of Stay (in days): 4 - 6 Acuity (Admit via E.D.?): Yes E.D. Visits: 1 - Answers: Total Score: 8 Risk of Readmission: Low Risk Care Management Discharge Reason for Hospitalization: Left Subcapital Femur Fracture Discharge Plan: Jazmine returned home today with new orders for HH PT, OT, DRUPAL PROGRAMMER. She transported via private vehicle by a friend. She will follow up with her PCP and discharge plan of care. She was happy to be going home. Patient/Family Education Needs: Review discharge instructions and limitations, discussion of self care needs including ask me three. Services Needed at Discharge: Home Health Care Services (HH PT, OT, DRUPAL PROGRAMMER)
--- NOTE | 2022-08-24 09:43 | INDS_ITS ---
Date of service: 08/23/22 Time of Service: 09:43 PT Notes Visit Reasons: Left Subcapital Femur Fracture Physical Therapy Inpatient Discharge Summary Date: 08/23/2022 Dates of service: 08/20/2022 through 08/23/2022 This is a clinical summary of care provided for the duration of dates listed above. No charge was made in the completion of this documentation. Referring Doctor:? Federico Padilla,? PT Orders: PT CONSULT: S/P Ortho Surgery.? WBAT on the L LE with assist device Precautions:?Posterior hip precautions in place per Dr. Padilla.? WBAT on the L LE with AD.? Zero visual acuity in B eyes. Patient Profile/Admitting Diagnosis:? Patient is an 81-year-old female patient with displaced subcapital fracture of the L femoral neck sustained from a fall and is S/P L posterior hip hemiarthroplasty on postoperative day 3. 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 [place] [facility] [place]/Home Situation: Lives alone with her dog and her cat in a private home with a flight of steps to enter through her cellar.? Patient has about a distance of 20 feet from her bed to the bathroom.? Equipment Owned/DME: FWW,? SPC SUBJECTIVE: NT. See most recent FOUNDRY EQUIPMENT MECHANIC notes. OBJECTIVE: General Observation: NT. See most recent FOUNDRY EQUIPMENT MECHANIC notes. Mental Status: NT. See most recent FOUNDRY EQUIPMENT MECHANIC notes. Pain: NT. See most recent FOUNDRY EQUIPMENT MECHANIC notes. Vital Signs: NT. See most recent FOUNDRY EQUIPMENT MECHANIC notes. ROM: Right Upper Extremity: ? Shoulder Flexion WFL. Shoulder abduction WFL. Elbow flexion WFL. Wrist flexion WFL. Functional opening and closing of hand WFL. Left Upper Extremity:? Shoulder Flexion WFL. Shoulder abduction WFL. Elbow flexion WFL. Wrist flexion WFL. Functional opening and closing of hand WFL. Right Lower Extremity: Hip flexion WFL. Hip abduction WFL. Knee flexion WFL. Ankle dorsiflexion WFL. Ankle plantarflexion WFL. Left Lower Extremity: Able to move through 90 degrees of hip flexion without increase in pain.? Hip abduction WFL.? Knee flexion WFL. Ankle dorsiflexion WFL. Ankle plantarflexion WFL. Strength: Right Upper Extremity: Shoulder flexors 4/5. Shoulder abductors 4/5. Elbow flexors 4/5. Elbow extensors 4/5. Machine I Cutter strong. Left Upper Extremity: Shoulder flexors 4/5. Shoulder abductors 4/5. Elbow flexors 4/5. Elbow extensors 4/5. Machine I Cutter strong. Right Lower Extremity: Hip flexors 4/5. Hip abductors 4/5. Knee flexors 4/5. Knee extensors 4-/5. Ankle dorsiflexors 4-/5. Ankle plantarflexors 4-/5. Left Lower Extremity: Hip flexors 3-/5. Hip abductors 3+/5. Knee flexors 4-/5. Knee extensors 3/5. Ankle dorsiflexors 4-/5. Ankle plantarflexors 4-/5. BED MOBILITY/TRANSFERS? Rolling L/R: Independent Supine-sit: Independent Sit-supine: Independent? Sit-stand: Independent? Stand-sit: Independent ? Bed-Chair: Supervision (patient will likely be fine in her own, familiar environment. Being visually impaired, she is uncertain of her movements in unfamiliar setting.) ? Chair-bed: Supervision (patient will likely be fine in her own, familiar environment. Being visually impaired, she is uncertain of her movements in unfamiliar setting.) ? GAIT? Assistive Device: single point cane ? Weight bearing: as tolerated Assist: handhold assist for steering as well as CGA with gait belt? Distance:? 200 feet ? Deviation: Patient demonstrates shortened stride length with step-to pattern right to left. Educated patient on using cane in hand opposite injured side. Patient reports feeling less balanced, but reports her seeing eye dog walks on the left so it's more convenient for her to use the cane in the right hand anyway. Verbal cues for gait sequence with assistive device. Patient also ambulates within her room, stands and walks cautiously without assistive device in spite of therapist verbal cues to use device. ? Balance: Static Sitting: Good Dynamic Sitting: Fair Static Standing: Fair Dynamic Standing: Poor Special Tests: Mobility Limitations Standardized Measure [facility] AM-PAC 6 clicks Basic Mobility Inpatient Short Form: Raw Score: 23? CMS Score: 11% deficit? ? ? ASSESSMENT: Patient presents functional mobility decline and functional impairments below due to pain and postoperative status.? Ensure that pre-medication is done? for pain for all PT sessions.? May need short-term rehab to reduce fall risk at home.? Patient presents with clinical signs and symptoms consistent with current/admitting diagnoses that have resulted to mobility limitations, gait instability, generalized weakness, and overall ADL decline as demonstrated by the following impairment level findings: 1.? Decreased strength to R LE major muscle groups 2.? Impaired sitting/standing balance 3.? Impaired activity tolerance 4.? Limitation of joint range of motion in R hip due to postoperative posterior hip precautions 5.? Shortness of breath 6.? Mild swelling in R LE Impairments are contributing to the following functional limitations: 1.? Decline in bed mobility skills 2.? Decline in transfer skills 3.? Difficulty with ambulation without assistive device and physical assistance 4.? Increased completion time for mobility ADL performance 5.? Increased risk for falls 6.? Difficulty with managing steps alone safely Patient is assessed as a 64150 moderate complexity based on the following: History: 81-year-old female with past medical history as indicated above Examination: Demonstrable impairment in strength, balance, and mobility level with underlying impairments and functional limitations as exhibited above as well as deficit score of 65% utilizing the [facility] Mobility Inp atient Short Form Presentation: Evolving Decision Makin moderate complexity Goals: Goals X1 week 1. Supine-Sit independent NOT MET 2. Sit-Supine independent NOT MET 3. Sit-Stand independent NOT MET 4. Stand-Sit independent with FWW NOT MET 5. Bed-Chair independent with FWW NOT MET 6. Chair-Bed independent with FWW NOT MET 7. Independent gait on level surface with use of FWW for at least 50 feet without report of pain nor dyspnea NOT MET 8. Independent stair negotiation while holding onto 1 rail for at least 12 steps without report of pain nor dyspnea NOT MET 9. Good static and dynamic standing balance/tolerance NOT MET DISCHARGE RECOMMENDATIONS: [] ? Home with no services [] [] ? Home with services [specify] [] ? Home with outpatient PT [] [] ? SNF for continued rehabilitation [] [] ? Real Estate Lawyer Care [] [] ? SNF versus LTC based on ability to participate and progress [] [X]? Short-term rehab vs.? PT based on patient's ability to progress towards goals TREATMENT CODE/TIME: NC Thank you for the opportunity to participate in the care of this patient. Macarena Oconnell PT, DPT, CLT [facility] [place], [place]
== END 2022-08-23 12:36 | disposition home health service (06) | DRG 522 ==
LOC: ER 18:15 → MS 18:53
PROVIDERS: Family Medicine; Internal Medicine; Nurse Practitioner Family; Student in an Organized Health Care Education/Training Program; Admitting Provider Internal Medicine; Emergency Provider Emergency Medicine; PCP Nurse Practitioner Family; Visit Provider Internal Medicine
PROC: 0SRS0JA Replacement of Left Hip Joint, Femoral Surface with Synthetic Substitute, Uncemented, Open Approach (ICD-10-PCS; CPT 27125; principal; 2022-08-19 13:45)
DX: S72.012A Unspecified intracapsular fracture of left femur, initial encounter for closed fracture (principal); W18.39XA Other fall on same level, initial encounter; L30.9 Dermatitis, unspecified; L21.9 Seborrheic dermatitis, unspecified; K29.80 Duodenitis without bleeding; K22.70 Barrett's esophagus without dysplasia; K21.9 Gastro-esophageal reflux disease without esophagitis; Z96.641 Presence of right artificial hip joint; H54.3 Unqualified visual loss, both eyes; M62.838 Other muscle spasm
CPT/HCPCS: 27236; 36415; 73552; 76942; 80048; 80053; 80076; 80307; 82550; 87635; 93005; 96365; 97116; 97162; 97530; 99223; 99285; 71045; 73502; 80320; 81003; 82977; 83615; 83735; 84100; 85025; 85610; 85730; 93010; 99232; 99239; J0131; J0171; J0690; J1100; J1170; J1885; J2405; J2704

== ENCOUNTER 2022-09-07 11:05 | Outpatient (CLI) | payer MEDICARE, SELFPAY ==
--- NOTE | 2022-09-07 11:00 | DI.RAD_ITS ---
Exam(s) XR HIP LT COMPLETE AP PELVIS EXAM: XR HIP LT COMPLETE AP PELVIS CLINICAL HISTORY: f/u fx. TECHNIQUE: 2D digital imaging was performed. COMPARISON: CR XR HIP LT COMPLETE AP PELVIS from 08/19/2022 FINDINGS: Two views Again nor bilateral hip prostheses. These appear to be in satisfactory position alignment. No new f ractures. No loosening evident. IMPRESSION: Satisfactory stable appearance. DATA REPOSITORY: RADIATION DOSE DELIVERED:
== END 2022-09-07 11:06 | disposition home or self-care (01) ==
LOC: DIORS 11:05
PROVIDERS: PCP Nurse Practitioner Family; Referring Provider Nurse Practitioner Family; Visit Provider Physician Assistant
DX: S72.002D Fracture of unspecified part of neck of left femur, subsequent encounter for closed fracture with routine healing (principal); X58.XXXD Exposure to other specified factors, subsequent encounter
CPT/HCPCS: 73502

== ENCOUNTER 2022-11-16 10:58 | Outpatient (CLI) | payer MEDICARE, SELFPAY ==
--- NOTE | 2022-11-16 10:47 | DI.RAD_ITS ---
Exam(s) XR HIP LT AP LAT ONLY EXAM: XR HIP LT AP LAT ONLY CLINICAL HISTORY: F/U LEFT HIP HEMIARTHROPLASTY. TECHNIQUE: 2D digital imaging was performed. Two images were obtained. AP and lateral views were ob tained. COMPARISON: CR XR HIP LT COMPLETE AP PELVIS from 09/07/2022 FINDINGS: BONES: There are stable post operative changes present. No fracture or dislocation. JOINTS: The orthopedic hardware is in good position. No evidence of hardware loosening. SOFT TISSUE: Atherosclerosis. IMPRESSION: Stable left hemiarthroplasty. DATA REPOSITORY: RADIATION DOSE DELIVERED:
== END 2022-11-16 10:59 | disposition home or self-care (01) ==
LOC: DIORS 10:59
PROVIDERS: PCP Nurse Practitioner Family; Referring Provider Nurse Practitioner Family; Visit Provider Student in an Organized Health Care Education/Training Program
DX: S72.101D Unspecified trochanteric fracture of right femur, subsequent encounter for closed fracture with routine healing (principal); X58.XXXD Exposure to other specified factors, subsequent encounter; Z96.641 Presence of right artificial hip joint
CPT/HCPCS: 99213; 73502